=== PATIENT | female | born 1960 | race Caucasian/White ===

== ENCOUNTER → 2016-06-27 | Outpatient (REF) | payer OTHER ==
[~2016-06-27] MED LIST: /ESOM40CA PO; CIPR500T19 OR; DETR4CAP PO; FERR325T OR; FLAG500T OR; HYDR12.55 PO; IRONTAB3 PO; LISI40TAB PO; MOTRIN PO; No Historical Meds; OMEP20TA7 OR; VICO5TAB16 PO
[2016-06-27 18:10] LABS: ALBUMIN 4.3 GM/DL (3.2-5.2); ALBUMIN/GLOBULIN RATIO 1.08 (1.00-1.93); ALKALINE PHOSPHATASE 112 U/L (45-117); ALT/SGPT 65 U/L (12-78); ANION GAP 8 MEQ/L (8-16); AST/SGOT 30 U/L (15-37); BILIRUBIN,TOTAL 0.3 MG/DL (0.2-1.0); BLOOD UREA NITROGEN 13 MG/DL (7-18); CALCIUM LEVEL 9.1 MG/DL (8.5-10.1); CARBON DIOXIDE LEVEL 32 MEQ/L (21-32); CHLORIDE LEVEL 104 MEQ/L (98-107); CREATININE FOR GFR 0.74 MG/DL (0.55-1.02); GLOMERULAR FILTRATION RATE > 60.0 (>51); GLUCOSE, FASTING 86 MG/DL (70-105); POTASSIUM SERUM 4.2 MEQ/L (3.5-5.1); SODIUM LEVEL 144 MEQ/L (136-145); TOTAL PROTEIN 8.3 GM/DL (6.4-8.2)
[2016-06-27 19:14] LABS: BASO # 0.1 K/mm3 (0.0-0.2); BASO % 0.8 % (0.0-1.0); EOS # 0.4 K/mm3 (0.0-0.50); LARGE UNSTAINED CELL # 0.2 K/mm3 (0.0-0.4); LARGE UNSTAINED CELL % 2.3 % (0.0-4.0); LYMPH # 1.8 K/mm3 (1.5-4.5); LYMPH % 25.5 % (24.0-44.0); MEAN CORPUSCULAR HEMOGLOBIN 28.3 pg (27.0-33.0); MEAN CORPUSCULAR HGB CONC 32.5 g/dl (32.0-36.5); MONO # 0.5 K/mm3 (0.0-0.8); MONO % 6.3 % (0.0-5.0); NEUTROPHILS # 4.2 K/mm3 (1.8-7.7); NEUTROPHILS % 59.1 % (36.0-66.0); PLATELET COUNT, AUTOMATED 217 k/mm3 (150-450); RED CELL DISTRIBUTION WIDTH 13.1 % (11.5-14.5); WHITE BLOOD COUNT 7.1 K/mm3 (4.0-10.0)
== END ==
LOC: M SFHCCLAY 10:46
PROVIDERS: ATTEND Family Medicine
DX: D64.9 Anemia, unspecified (principal); I10 Essential (primary) hypertension

== ENCOUNTER → 2016-07-08 | Outpatient (CLI) | payer OTHER ==
--- NOTE | 2016-07-08 08:29 | REP ---
The penetration on the ultrasound on this patient is not completely optimal. In the posterior wall of the gallbladder is suggestion of a 2.9 mm nodular polyp. This finding is not conclusive. The common bile duct measurement is 4.4 mm. Gallbladder wall thickness 1.3 mm. The echogenicity of the liver is increased with some focal fatty sparing. The pancreas is difficult to visualize. The kidney measures 10.7 x 5.1 x 5.1 cm and has normal echotexture. IMPRESSION: There is fatty replacement of the liver. Normal common bile duct. Possible polyp of the posterior wall of the gallbladder but this finding is not conclusive. The study has not changed significantly from that on 12/24/2008. Unreviewed
== END ==
LOC: M RAD 07:07
PROVIDERS: ATTEND Family Medicine
DX: K76.0 Fatty (change of) liver, not elsewhere classified (principal); M54.9 Dorsalgia, unspecified

== ENCOUNTER → 2016-10-24 | Outpatient (REF) | LOC: M SFHCADAM 18:02 | PROVIDERS: ATTEND Physician Assistant | DX: Z00.00 Encounter for general adult medical examination without abnormal findings (principal) ==

== ENCOUNTER 2017-04-09 22:25 | Inpatient (IN) | payer OTHER ==
[~2017-04-09] VITALS: Ht 160 cm; Wt 85.8 kg
[2017-04-09] MEDS ORDERED: ISOVUE-370 76% 100ML VIAL (Q9967) As Ordered ONE (22:43)
--- NOTE | 2017-04-09 23:00 | REPUSA ---
CT of the head Clinical history: Headache. Comparison: september. Protocol: Multiple axial CT images obtained with 5 mm slice thickness were obtained through the head without administration of contrast. Findings: The ventricles and sulci are symmetric but prominent in size bilaterally. There are periven tricular areas of low attenuation throughout the deep white matter. There is no evidence of acute hem orrhage or infarct. There is no midline shift, mass effect, or extra-axial fluid collection. The osse ous structures are unremarkable. The visualized paranasal sinuses and mastoid air cells are clear. Impression: No acute hemorrhage or infarct. Findings are consistent with stable age-related atrophy a nd mild chronic small vessel ischemic disease.
[2017-04-09] MEDS ORDERED: OMEP40CA2 PO (23:06)
[2017-04-09] MEDS ORDERED: HYDR25TAB PO (23:06)
[2017-04-09] MEDS ORDERED: LISI40TAB PO (23:06)
[2017-04-09 23:37] LABS: BASO % 0.6 % (0.0-1.0); EOS # 0.5 10^3/uL (0.0-0.50); EOS % 7.2 % (0.0-3.0); IMMATURE GRANULOCYTE % 0.4 % (0-0); LYMPH # 2.4 10^3/uL (1.5-4.5); LYMPH % 34.2 % (24.0-44.0); MEAN CORPUSCULAR HEMOGLOBIN 29.2 pg (27.0-33.0); MEAN CORPUSCULAR HGB CONC 33.3 g/dl (32.0-36.5); MEAN CORPUSCULAR VOLUME 87.6 fl (80.0-96.0); MONO # 0.5 10^3/uL (0.0-0.8); MONO % 7.4 % (0.0-5.0); NEUTROPHILS # 3.5 10^3/uL (1.8-7.7); NEUTROPHILS % 50.2 % (36.0-66.0); PLATELET COUNT, AUTOMATED 231 10^3/uL (150-450); RED CELL DISTRIBUTION WIDTH 12.6 % (11.5-14.5)
[2017-04-09 23:47] LABS: INR 0.94
[2017-04-10 00:03] LABS: ANION GAP 9 MEQ/L (8-16); BLOOD UREA NITROGEN 17 MG/DL (7-18); CALCIUM LEVEL 9.2 MG/DL (8.5-10.1); CARBON DIOXIDE LEVEL 31 MEQ/L (21-32); CHLORIDE LEVEL 102 MEQ/L (98-107); CREATININE FOR GFR 1.02 MG/DL (0.55-1.02); GLOMERULAR FILTRATION RATE 59.9 (>51); GLUCOSE, FASTING 134 MG/DL (70-105); POTASSIUM SERUM 3.6 MEQ/L (3.5-5.1); SODIUM LEVEL 142 MEQ/L (136-145)
--- NOTE | 2017-04-10 02:40 | REPUSA ---
CLINICAL HISTORY: Dyspnea, exclude PE. TECHNIQUE: Multiple incremental axial, coronal and oblique images are obtained from the thoracic inle t to the upper abdomen. Intravenous contrast material was administered as per pulmonary embolism prot ocol. COMMENTS: Subsegmental atelectatic airspace disease in the lingula and bilateral lower lobes. There is excellent opacification of pulmonary arterial system without evidence for pulmonary embolism . Aorta is of normal caliber without evidence for dissection or aneurysm. There is no evidence of pleural or parenchymal mass. There are no pleural effusions. There is no evid ence of hilar or mediastinal lymphadenopathy. The heart and great vessels are within normal limits. Images of the upper abdomen demonstrate no evidence of adrenal mass. The bony structures are free of lytic or blastic lesions. IMPRESSION: No evidence for pulmonary embolism. Subsegmental atelectatic airspace disease in the lingula and bilateral lower lobes. Thank you for your kind referral of this patient.
[2017-04-10] MEDS ORDERED: ASPIRIN 81 MG CHEW TABLET PO ONE (05:15)
--- NOTE | 2017-04-10 05:48 | HPE ---
DATE OF ADMISSION: 04/10/2017 This patient is a 56-year-old female. CHIEF COMPLAINT: The patient comes in with the chief complaint of aphasia and weakness. HISTORY OF PRESENT ILLNESS (HPI): The patient is a 56-year-old female who comes in with complaints of difficulty speaking, aphasia and crushing chest pain in her middle chest area leading down to her epigastrium. The patient notes that this began while she was watching television yesterday evening. The patient said that it happened all at once and at the same time she suddenly lost the ability to talk, she could not communicate. The patient did however state she understood everything that was going on, was having difficulty speaking; therefore they brought her in for the chest pain and the aphasia. While the patient was in the emergency department (ED) she says the chest pain has significantly decreased but there is a mild presence that is still there. The patient's difficulty speaking has completely resolved. REVIEW OF SYSTEMS: The patient 10-system review shows no other acute complaints other than some weakness that has also now resolved. ALLERGIES: The patient has allergies to ALBUTEROL and IPRATROPIUM. PAST MEDICAL HISTORY: 1. Hypertension. 2. Chronic gastritis. 3. Nonalcoholic fatty liver disease. 4. Iron deficiency anemia. 5. 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 PAST SURGICAL HISTORY: 1. Anton fundoplication 2002. 2. section times two. 3. Tonsillectomy and adenoidectomy. 4. Breast reduction 2008. FAMILY HISTORY: The patient has a family history of cerebrovascular accident (CVA) and myocardial infarction (IL) in the father and mother with melanoma and hypertension. SOCIAL HISTORY: The patient is a nonsmoker, nondrinker, nondrug abuser. Initial EKG was actually sinus rhythm. The followup EKG was sinus bradycardia. PHYSICAL EXAMINATION: VITAL SIGNS: Most recently pulse 77, temperature 96.1, blood pressure 113/63, pulse oxygen 97. STROKE SCALE: 0 when I did the stroke scale during my physical exam. CENTRAL NERVOUS SYSTEM: II-XII grossly intact. The patient with grossly normal hearing. The patient is able to see out of both eyes. HEENT: ENT within normal limits. Extraocular muscles intact (EOMI), pupils equal, round, and reactive to light and accommodation (PERRLA). No meningeal signs. HEART: S1, S2. CHEST: Good inspiratory and expiratory effort, no wheezes, rhonchi or rales. MUSCULOSKELETAL: The patient has 5/5 strength in all four extremities. NEUROLOGIC: The patient is awake, alert and oriented times three. Normal affect, normal mood. SKIN: The skin is warm and dry. No apparent lymphadenopathy. LABORATORY EXAM: WBC 7.0, hemoglobin, hematocrit and platelets within normal limits. Coagulation within normal limits. Chemistry: Sodium 142, potassium 3.6, chloride 102, carbon dioxide 31, anion gap 9, BUN 17, creatinine 1.02. Fasting glucose 134, troponin is negative times two. IMAGING: CT angiogram of the chest with no evidence of pulmonary embolism, segmental atelectatic air space disease in the lingula and bilateral lower lobes. Head CT impression: No acute hemorrhage or infarct. The findings are consistent with stable aged related atrophy, mild chronic small vessel ischemic disease. ASSESSMENT AND PLAN: The patient is a 56-year-old female who comes in with chest pain and aphasia. The chest pain mostly resolved, still mildly present. As per the patient aphasia completely resolved as is weakness. The patient was initially evaluated via tele-med by neurology. No particular recommendations noted. The patient's MRI status post MRI, will call neurology and discuss plan, place consult. Will hold hydrochlorothiazide and lisinopril. The patient should be on permissive hypertension at this time. The patient is to be admitted for transient ischemic attack (TIA) work-up, neurology consult, continued observation.
--- NOTE | 2017-04-10 06:00 | REPUSA ---
CLINICAL HISTORY: Confusion. TECHNIQUE: MRI of the brain was performed utilizing multiple sequences in axial, coronal and sagittal planes without IV contrast material. COMMENTS: The sella and parasellar region are unremarkable in appearance. The corpus callosum and cerebellar to nsils are of normal configuration and position. There are no intra or extra-axial collections. There is no mass effect or midline shift. There is no evidence of hematoma formation. There is no hydroceph alus. The visualized arterial structures demonstrate normal appearing flow voids. The seventh and eighth ne rve bundles are visualized and are unremarkable in appearance. Several foci of T2/FLAIR hyperintensity are noted in the bilateral periventricular and subcortical wh ite matter compatible with mild chronic white matter ischemic changes. Generalized proportionate dilatation of ventricles and sulci is present compatible with age-appropria te parenchymal atrophy. Moderate chronic mucosal inflammatory changes in the left maxillary sinus. IMPRESSION: 1. No acute intracranial pathology. 2. Generalized age-appropriate parenchymal atrophy. 3. Mild chronic white matter microvascular ischemic changes. Thank you for your kind referral of this patient.
--- NOTE | 2017-04-10 06:20 | REPUSA ---
CLINICAL HISTORY: Left eye loss of vision. TECHNIQUE: Three dimensional hmif-sf-sodakw angiography is performed of the [place]. The wendi dy was performed without IV contrast agent. FINDINGS: The supraclinoid portions of the internal carotid arteries are of normal shape. The normal bifurcation is seen. The middle cerebral arteries are unremarkable in appearance. The posterior circu lation is visualized and shows no evidence of occlusion or aneurysm formation. The basilar tip is see n and shows no aneurysm formation. There is no evidence of beading to suggest vasculitis. IMPRESSION: MRA of the [place] is within normal limits. Thank you for your kind referral of this patient.
--- NOTE | 2017-04-10 08:04 | REP ---
Clinical: Altered mental status. Possible cerebrovascular accident . Comparison: 09/12/2014 . Findings: The mediastinum and cardiac silhouette are stable and within normal limits for portable technique. The lung luciano are clear without acute consolidation, effusion, or pneumothorax. Skeletal structures are intact. Impression: No acute cardiopulmonary process appreciated. Signed by Omar Brar MD 04/10/2017 07:56 A
--- NOTE | 2017-04-10 08:19 | REP ---
DUPLEX CAROTID SONOGRAPHY: HISTORY: TIA. FINDINGS: Antegrade flow was observed in both vertebral arteries. RIGHT CAROTID: The right common carotid artery is unremarkable on two-dimensional scanning. There is minimal mixed plaquing in the bulb, proximal ICA and proximal ECA on the right side. The right bifurcation is somewhat high. Color flow and spectral Doppler interrogation are unremarkable on the right. Velocity Chart Right Carotid: PSV EDV Right CCA 85 cm/s Right ICA 44 cm/s 19 cm/s Right ECA 49 cm/s Right ICA/CCA ratio normal 0.52. IMPRESSION: 0-15% category narrowing in the right ICA by Doppler velocity criteria. LEFT CAROTID: The left common carotid artery is unremarkable. The left carotid bifurcation is somewhat high a similar to the right. There is mild mixed plaquing. Color flow and spectral Doppler interrogation are unremarkable on the left. Velocity Chart Left Carotid: PSV EDV Left CCA 68 cm/s Left ICA 52 cm/s 15 cm/s Left ECA 63 cm/s Left ICA/CCA ratio normal 0.8. IMPRESSION: 0-15% category narrowing in the left ICA by Doppler velocity criteria. Signed by Bharat Nguyen MD 04/10/2017 01:01 P
[2017-04-10 09:00] VITALS: BP 125/71
--- NOTE | 2017-04-10 09:03 | IPNPDOC ---
Subjective Date Seen The patient was seen on 04/10/17. Subjective Chief Complaint/HPI The patient is a 56-year-old female admitted with a reason for visit of Tia( Transient Ischemic Attack). Constitutional: Denies: Chills, Night Sweats ENT: Denies: Head Aches, Dysphagia Skin: Denies: Rash Pulmonary: Denies: Dyspnea, Cough Cardiovascular: Denies: Palpitations, Orthopnea, Paroxysmal Noc. Dyspnea Gastrointestinal: Denies: Vomiting, Abdominal Pain, Diarrhea Genitourinary: Denies: Dysuria Hematologic: Denies: Bruising Psych: Reports: Mood Normal Objective Physical Examination Neuro Exam: Positive: Normal Speech, Cranial Nerves 3-12 NL, Reflexes 2+, Other (no demonstrable weakness.) Assessment /Plan Problems (1) TIA (transient ischemic attack) Status: Acute Response to Treatment: Improving Problem Specific Plan: Consult Specialist Problem Text: patient with history of similar previous episodes. negative MRI, CT, Carotid doppler so far. No residual deficit noted. Since she has seen Dr. Villegas in past, will consult Neuro. Continue ASA at 162mg for now (2) Chest pain Status: Acute Response to Treatment: Improving Problem Text: Unclear cause. CT angio neg. Troponins negative. She does have history of GERD and is s/p fundoplication (3) Essential hypertension Status: Chronic Response to Treatment: Stable Problem Text: Has not yet resumed bp meds, will follow. Resume prior to discharge or if pressure climbs sufficiently to require Rx while in house. (4) GERD (gastroesophageal reflux disease) Status: Chronic Response to Treatment: Stable Problem Text: Atypical CP as above. Has hx of GERD and is s/p Anton fundoplication. On PPI Plan/VTE VTE Prophylaxis Ordered?: Yes Plan Diagnostics: Check Labs Anticipated Discharge: Home VS, I&O, 24H, [facility] Vital Signs/I&O Vital Signs Date Time Temp Pulse Resp B/P (MAP) Pulse Ox O2 Delivery O2 Flow Rate FiO2 04/10/17 07:15 56 112/73 (86) 95 04/09/17 22:53 96.1 18 Room Air Laboratory Data 24H LABS Laboratory Tests 2 04/09/17 23:24: Immature Granulocyte % (Auto) 0.4H, White Blood Count 7.0, Red Blood Count 4.42 , Hemoglobin 12.9, Hematocrit 38.7, Mean Corpuscular Volume 87.6, Mean Corpuscular Hemoglobin 29.2, Mean Corpuscular Hemoglobin Concent 33.3, Red Cell Distribution Width 12.6, Platelet Count 231, Neutrophils (%) (Auto) 50.2, Lymphocytes (%) (Auto) 34.2, Monocytes (%) (Auto) 7.4H, Eosinophils (%) (Auto) 7.2H, Basophils (%) (Auto) 0.6, Neutrophils # (Auto) 3.5, Lymphocytes # (Auto) 2.4, Monocytes # (Auto) 0.5, Eosinophils # (Auto) 0.5, Basophils # (Auto) 0.0, Immature Granulocyte # (Auto) 0.0, Nucleated Red Blood Cells % (auto) 0.0, Prothrombin Time 12.7, Prothromb Time International Ratio 0.94, Activated Partial Thromboplast Time 29.2, Anion Gap 9, Glomerular Filtration Rate 59.9, Blood Urea Nitrogen 17, Creatinine 1.02, Sodium Level 142, Potassium Level 3.6, Chloride Level 102, Carbon Dioxide Level 31, Calcium Level 9.2, Total Creatine Kinase 107, Creatine Kinase MB 3.4, Creatine Kinase MB Relative Index 3.17, Troponin I < 0.02 04/10/17 03:00: Total Creatine Kinase 81, Creatine Kinase MB 2.4, Creatine Kinase MB Relative Index 2.96, Troponin I < 0.02 04/10/17 07:00: Troponin I < 0.02 CBC/BMP Laboratory Tests 04/09/17 23:24 Red Blood Count 4.42, Mean Corpuscular Volume 87.6, Mean Corpuscular Hemoglobin 29.2, Mean Corpuscular Hemoglobin Concent 33.3, Red Cell Distribution Width 12.6 , Neutrophils (%) (Auto) 50.2, Lymphocytes (%) (Auto) 34.2, Monocytes (%) (Auto ) 7.4 H, Eosinophils (%) (Auto) 7.2 H, Basophils (%) (Auto) 0.6, Neutrophils # ( Auto) 3.5, Lymphocytes # (Auto) 2.4, Monocytes # (Auto) 0.5, Eosinophils # (Auto ) 0.5, Basophils # (Auto) 0.0, Calcium Level 9.2, Total Creatine Kinase 107 Romulo Kirkpatrick MD Apr 10, 2017 09:03
--- NOTE | 2017-04-10 09:17 | ECGEPIP ---
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
--- NOTE | 2017-04-10 09:19 | ECGEPIP ---
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
[2017-04-10] MEDS: ATORVASTATIN 20 MG TAB PO SCH ×2 (09:41→20:33)
[2017-04-10] MEDS: OMEPRAZOLE 20 MG CAP PO SCH (09:43)
[2017-04-10 10:00] VITALS: BP 123/58
[2017-04-10 12:04] VITALS: BP 113/66
[2017-04-10 14:00] VITALS: BP 97/55
[2017-04-10 16:00] VITALS: BP 148/69
[2017-04-10 20:00] VITALS: BP 106/61
[2017-04-11] VITALS: BP 126/67
[2017-04-11 03:45] VITALS: BP 118/67
[2017-04-11 08:00] VITALS: BP 126/73
--- NOTE | 2017-04-11 08:03 | CR ---
DATE OF CONSULTATION: 04/10/2017 REFERRING PHYSICIAN: Dr. Romulo Kirkpatrick. REASON FOR CONSULTATION: Trouble with speech and chest pain. HISTORY OF PRESENT ILLNESS: Julissa Augustine is a 56-year-old woman who had multiple episodes of speech difficulty in [id number]. She would have one or two episodes per months. She was not able to say the words she has in her mind and she would have stuttering speech with jaw locked up. They would last 10-15 minutes and resolving by relaxing and calming down. Work and stress would increase them. She would also have very high blood pressure in some of these episodes. It was thought that by controlling her blood pressure the episodes would improve and they actually did improve. She had no episodes for 2 years. Yesterday it was a usual day for her. She had left leg pain. Around 9:00 p.m., while watching TV, she developed severe chest pain and severe 8/10 headache, both of which lasted for 1-2 hours. She also felt neck pain. Headache was frontal in location. She felt stuttering speech trouble, as she could not say words. She had to force her words out. She had everything in her mind but could not say it. This lasted for 6 hours. She had MRI and MRA of brain, which were unremarkable. Carotid ultrasound showed less than 15% bilateral carotid artery stenosis. She also had EEG on an outpatient basis in 2014, which was unremarkable. The patient states that she have severe side effects due to aspirin and NSAIDs, which caused peptic ulcer disease and whenever she takes aspirin it aggravates her ulcers. She denies any neck pain, dysphagia, diplopia, urinary incontinence, falls or loss of consciousness. PAST MEDICAL HISTORY: Hypertension. Fatty liver disease. Chronic gastritis. Iron-deficiency anemia. Myoclonic jerks in sleep. PAST SURGICAL HISTORY: sections. Tonsillectomy. Adenoidectomy. Breast reduction. Dago fundoplication. SOCIAL HISTORY: The patient denies smoking, alcohol or illicit drugs. FAMILY HISTORY: His father had stroke and heart attack. Mother had melanoma and hypertension. REVIEW OF SYSTEMS: All systems were reviewed and found to be noncontributory except as mentioned in history present illness. PHYSICAL EXAMINATION: Temperature 98.5 pulse 58, respiratory rate 18, blood pressure 148/69. Heart regular rate and rhythm. Lungs: Clear to auscultation. Abdomen: Soft, nontender, nondistended. Neurological Exam: The patient is awake, alert, oriented to place, person and time. Normal speech comprehension and repetition. Extraocular muscles are intact. No facial weakness. Tongue and uvula are midline. 5/5 strength in all four extremities. Deep tendon flexes 2+ throughout. Normal sensation. Gait is normal. There is no dysmetria or ataxia. There is no tremor. There is no rigidity. There are no signs of meningeal irritation. No pedal edema. No rash. No gross musculoskeletal abnormalities. Ear, nose and throat examination reveals crowded upper airway present. DIAGNOSTIC STUDIES: As per history present illness, the patient had extensive blood tests in 2015 to rule out vasculitis and coagulation disorders. ASSESSMENT 1. There is concern for transient ischemic attack. 2. Hypertensive urgency can produce similar symptoms although the patient did not have high blood pressure with her symptoms this time. 3. Less than 15% bilateral carotid artery stenosis. PLAN: 1. Aspirin 162 mg by mouth daily, Lipitor 20 mg by mouth daily and continue Prilosec 40 mg by mouth daily. 2. Consider transesophageal echocardiogram. 3. Continue telemetry monitoring. 4. Follow with Dr. Villegas at our office in 1 month after hospital discharge. ONEYDA
[2017-04-11 08:38] LABS: ALBUMIN 3.6 GM/DL (3.2-5.2); ALBUMIN/GLOBULIN RATIO 0.95 (1.00-1.93); ALKALINE PHOSPHATASE 75 U/L (45-117); ALT/SGPT 32 U/L (12-78); ANION GAP 9 MEQ/L (8-16); AST/SGOT 18 U/L (7-37); BILIRUBIN,TOTAL 0.3 MG/DL (0.2-1.0); BLOOD UREA NITROGEN 22 MG/DL (7-18); CALCIUM LEVEL 9.1 MG/DL (8.5-10.1); CARBON DIOXIDE LEVEL 27 MEQ/L (21-32); CHLORIDE LEVEL 105 MEQ/L (98-107); CREATININE FOR GFR 0.74 MG/DL (0.55-1.02); GLOMERULAR FILTRATION RATE > 60.0 (>51); GLUCOSE, FASTING 98 MG/DL (70-105); SODIUM LEVEL 141 MEQ/L (136-145); TOTAL PROTEIN 7.4 GM/DL (6.4-8.2)
[2017-04-11] MEDS ORDERED: ASPIRIN 81 MG CHEW TABLET PO SCH (09:00)
[2017-04-11] MEDS: OMEPRAZOLE 20 MG CAP PO SCH (09:41)
[2017-04-11 12:00] VITALS: BP 138/73
--- NOTE | 2017-04-11 12:00 | IPNPDOC ---
Subjective Date Seen The patient was seen on 04/11/17. Subjective Chief Complaint/HPI The patient is a 56-year-old female admitted with a reason for visit of Tia( Transient Ischemic Attack). Events since last encounter No further headache. no further aphasia. Feels well. Constitutional: Denies: Chills, Fever Pulmonary: Denies: Dyspnea, Cough Cardiovascular: Denies: Chest Pain, Palpitations Gastrointestinal: Denies: Nausea, Vomiting, Abdominal Pain, Diarrhea, Constipation Objective Physical Examination General Exam: Positive: Alert, No Acute Distress Chest Exam: Positive: Clear to auscultation, Normal air movement Heart Exam: Positive: Rate Normal, Negative: Murmurs Abdomen Exam: Positive: Normal bowel sounds, Soft, Negative: Tenderness Extremity Exam: Negative: Edema Neuro Exam: Positive: Normal Speech, Strength at 5/5 X4 ext, Cranial Nerves 3- 12 NL, Reflexes 2+, Other (finger to nose intact BL) Assessment /Plan Problems (1) TIA (transient ischemic attack) Status: Acute Response to Treatment: Improving Problem Specific Plan: Consult Specialist Problem Text: 04/11 - Neurology following. cont ASA 162 mg daily. cont. Lipitor. SENDY pending (has h/o migraines in past and had headache at time of onset of symptoms - ? atypicla migraines) patient with history of similar previous episodes. negative MRI, CT, Carotid doppler so far. No residual deficit noted. Since she has seen Dr. Villegas in past, will consult Neuro. Continue ASA at 162mg for now (2) Chest pain Status: Acute Response to Treatment: Improving Problem Text: Unclear cause. CT angio neg. Troponins negative. She does have history of GERD and is s/p fundoplication (3) Essential hypertension Status: Chronic Response to Treatment: Stable Problem Text: Bp meds held due to low BP - BP remains on low side (4) GERD (gastroesophageal reflux disease) Status: Chronic Response to Treatment: Stable Problem Text: Atypical CP as above. Has hx of GERD and is s/p Anton fundoplication. On PPI Plan/VTE VTE Prophylaxis Ordered?: Yes Plan Diagnostics: Check Labs Anticipated Discharge: Home VS, I&O, 24H, [facility] Vital Signs/I&O Vital Signs Date Time Temp Pulse Resp B/P (MAP) Pulse Ox O2 Delivery O2 Flow Rate FiO2 04/11/17 08:00 97.4 71 18 126/73 (90) 97 Room Air I&O- Last 24 Hours up to 6 AM 04/12/17 06:00 Intake Total 120 ml Output Total 0 ml Balance 120 ml Laboratory Data 24H LABS Laboratory Tests 2 04/10/17 13:05: Troponin I < 0.02 04/10/17 20:59: Troponin I < 0.02 04/11/17 07:18: Anion Gap 9, Glomerular Filtration Rate > 60.0, Blood Urea Nitrogen 22H, Creatinine 0.74, Sodium Level 141, Potassium Level 4.0, Chloride Level 105, Carbon Dioxide Level 27, Calcium Level 9.1, Aspartate Amino Transf (AST/SGOT) 18 , Alanine Aminotransferase (ALT/SGPT) 32, Alkaline Phosphatase 75, Total Bilirubin 0.3, Total Protein 7.4, Albumin 3.6, Albumin/Globulin Ratio 0.95L CBC/BMP Laboratory Tests 04/11/17 07:18 Calcium Level 9.1, Aspartate Amino Transf (AST/SGOT) 18, Alanine Aminotransferase (ALT/SGPT) 32, Alkaline Phosphatase 75, Total Bilirubin 0.3, Total Protein 7.4, Albumin 3.6 SAL TINSLEY PA-C Apr 11, 2017 12:00
[2017-04-11] MEDS ORDERED: MIDAZOLAM INJ 2 MG/2 ML VIAL (J2250) As Ordered ONE (15:44)
[2017-04-11] MEDS ORDERED: LIDOCAINE VISCOUS 2% SOLN 15ML UDC As Ordered ONE (15:45)
[2017-04-11] MEDS: MIDAZOLAM INJ 2 MG/2 ML VIAL (J2250) IV ONE ×2 (15:59→16:32)
[2017-04-11] MEDS ORDERED: LIDOCAINE VISCOUS 2% SOLN 15ML UDC SS ONE (16:27)
[2017-04-11] MEDS ORDERED: MIDAZOLAM INJ 2 MG/2 ML VIAL (J2250) IV ONE ×2 (16:29→16:33)
--- NOTE | 2017-04-11 16:42 | T-ECHO ---
DATE OF PROCEDURE: 04/11/2017 PREPROCEDURE DIAGNOSIS: Transient cerebral ischemia, unspecified. POSTPROCEDURE DIAGNOSIS: Transient cerebral ischemia, unspecified. FINDINGS: Small patent foramen ovale with a very small amount of saline contrast shunting from right atrium to left atrium via patent foramen ovale (PFO). PROCEDURE PERFORMED: Transesophageal echocardiogram with saline contrast. PROCEDURE PERFORMED BY: Real Sorensen MD ACTIVITY THERAPIST: None. COMPLICATIONS: None. DESCRIPTION OF PROCEDURE: Rhythm was sinus. Patient received viscous lidocaine to gargle. She received a total of 4 mg of midazolam IV for IV conscious sedation. The patient tolerated the procedure well without any immediate complications. Esophageal intubation was accomplished without difficulty using a Marcin multiplane two-dimensional phased array transesophageal echocardiogram probe. The intraatrial septum was intact by color flow Doppler but was somewhat suspicious for presence of a PFO by visual assessment. Multiple saline contrast injections were performed with Valsalva maneuver release, and a very small amount of saline contrast bubbles were seen shunting from right atrium to left atrium via the PFO during Valsalva maneuver release, consistent with a very small patent foramen ovale. No masses, thrombi or spontaneous echo contrast were seen within the atria or their appendages. Pulmonary vein inflow connections to the left atrium were normal. Pulse wave Doppler of the left upper pulmonary vein showed normal flow pattern. Aortic valve was 3-cuspid and was structurally and functionally normal. Mitral leaflets were structurally and functionally normal with very mild mitral regurgitation within normal limits. Tricuspid valve was structurally normal with mild tricuspid regurgitation within normal limits. Pulmonic valve was not well visualized. No pericardial effusion. The ventricles were normal in size and in systolic function. No regional wall motion abnormalities of ventricles. Left ventricle ejection fraction was 65% by visual estimate. Distal aortic arch and descending thoracic aorta were normal. CONCLUSIONS: 1. Presence of a small patent foramen ovale with a very small amount of saline contrast shunting from right atrium to left atrium via the PFO during Valsalva maneuver release. 2. Otherwise normal appearing transesophageal echocardiogram (SENDY).
[2017-04-11 17:00] VITALS: BP 148/75
[2017-04-11 20:00] VITALS: BP 125/64
[2017-04-11] MEDS: ATORVASTATIN 20 MG TAB PO SCH (20:30)
[2017-04-11] MEDS ORDERED: SLF 3 ML SYR IV PRN (23:30)
[2017-04-12] VITALS: BP 122/62
[2017-04-12 04:00] VITALS: BP 102/60
[2017-04-12] MEDS ORDERED: SLF 3 ML SYR IV SCH (06:00)
[2017-04-12 06:11] LABS: ALBUMIN 3.3 GM/DL (3.2-5.2); ALBUMIN/GLOBULIN RATIO 0.92 (1.00-1.93); ALKALINE PHOSPHATASE 68 U/L (45-117); ALT/SGPT 31 U/L (12-78); ANION GAP 5 MEQ/L (8-16); AST/SGOT 12 U/L (7-37); BILIRUBIN,TOTAL 0.3 MG/DL (0.2-1.0); BLOOD UREA NITROGEN 17 MG/DL (7-18); CALCIUM LEVEL 8.8 MG/DL (8.5-10.1); CARBON DIOXIDE LEVEL 29 MEQ/L (21-32); CHLORIDE LEVEL 108 MEQ/L (98-107); CREATININE FOR GFR 0.65 MG/DL (0.55-1.02); GLOMERULAR FILTRATION RATE > 60.0 (>51); GLUCOSE, FASTING 98 MG/DL (70-105); POTASSIUM SERUM 3.8 MEQ/L (3.5-5.1); SODIUM LEVEL 142 MEQ/L (136-145); TOTAL PROTEIN 6.9 GM/DL (6.4-8.2)
[2017-04-12 07:45] VITALS: BP 120/63
[2017-04-12] MEDS: OMEPRAZOLE 20 MG CAP PO SCH (08:15)
[2017-04-12] MEDS ORDERED: CLOPIDOGREL 75 MG TAB PO SCH (09:00)
[2017-04-12] MEDS ORDERED: ASPIRIN 81 MG ENTERIC TAB PO SCH (09:00)
[2017-04-12] MEDS ORDERED: ATOR1TAB21 PO (09:32)
[2017-04-12] MEDS ORDERED: CLOP75TA2 PO (09:32)
[2017-04-12] MEDS ORDERED: ASPI81TAEC PO (09:32)
--- NOTE | 2017-04-12 11:01 | DS.PDOC ---
Discharge Summary General Date of Admission Apr 10, 2017 at 05:13 Date of Discharge 04/12/17 Discharge Summary Consults: Neurology Discharge diagnosis: Transient Ischemic Attack Secondary diagnosis: Chest Pain, Essential hypertension, GERD Hospital course: Patient presented to the ED on 04/09/17 with symptoms of being unable to speak, headache, and chest pain. Upon her arrival to the ED, these symptoms had almost resolved. Patient was admitted for observation for suspected TIA. During hospitalization, patient was seen by Dr. Virk of neurology who recommended patient have a SENDY. Neurology also recommended that the patient be on 162 mg of aspirin daily. Results of the SENDY showed a small patent foramen ovale and it was recommended that the patient begin a course of aspirin 81 daily and clopidogrel 75 mg daily for a week after discharge and then stop the aspirin and continue the clopidogrel. Patient also had carotid ultrasound that showed less than 15% stenosis bilaterally. Patients symptoms have resolved completely at time of discharge. Progress note on date of discharge: Subjective: Patient is doing well today with no acute complaints. Her symptoms that were present at time of admission have resolved completely. Objective: Vitals: Blood pressure: 120/63, pulse: 62, respirations: 18, temp: 97.4, pulse ox: 93% on RA. Gen.: Patient awake, alert and oriented, verbal and able to answer questions appropriately. Patient does not appear to be in any acute distress Heart: Regular rate and rhythm, normal S1-S2. No murmurs, rubs, clicks or gallops Lungs: Clear to auscultation bilaterally. No wheezes, rales or rhonchi Abdomen: Active bowel sounds, soft, nontender, no masses to palpation Labs: CBC: WBC: 7.0, HB.9, HCT: 38.7, Platelets: 231 BMP: Na: 142, K: 3.8: Cl: 108, Bicarb: 29, BUN: 17, Creatinine: 0.65, Glucose: 98, Calcium: 8.8 Assessment: Patient is 56 year old female who presented with aphasia, headache, and chest pain which was transient in nature. This is consistent with a transient ischemic attack. Patients symptoms have resolved and she is safe for discharge. Disposition: Discharge to home Follow-up: With Josh Dias on 04/19/17 at 11:00am, will need to call neurology to arrange for follow up in [address] Villegas. Activity: As tolerated Diet: 2 gram sodium restriction Medications on discharge: Aspirin 81 mg PO daily for 1 week then discontinue Clopidogrel 75 mg PO daily Atorvastatin 20 mg PO daily Omeprazole 40 mg PO daily Cc: Dr. Villegas, Narda Rosa Time spent on discharge: 30 minutes Discharge Medications Scheduled Aspirin (Aspirin EC) 81 Mg Tabec, 81 MG PO DAILY Atorvastatin Calcium (Atorvastatin Calcium) 20 Mg Tab, 20 MG PO QHS Clopidogrel Bisulfate (Clopidogrel) 75 Mg Tab, 75 MG PO DAILY Omeprazole (Omeprazole) 40 Mg Cap, 40 MG PO DAILY, (Reported) Allergies Coded Allergies: Albuterol (Verified Allergy, Severe, DIFFICULTY BREATHING,HANDS/FEET TURNED BLACK, 04/09/17) Ipratropium (Verified Allergy, Severe, DIFFICULTY BREATHING,HANDS/FEET TURNED BLACK, 04/09/17) GME ATTESTATION GME ATTESTATION My faculty preceptor for this patient encounter was physically present during the encounter and was fully available. All aspects of the patient interview, examination, medical decision making process, and medical care plan development were reviewed and approved by the faculty preceptor. The faculty preceptor is aware and concurs with the plan as stated in the body of this note and will attest to such by his/her cosignature. LASHON CARVALHO DO Apr 12, 2017 11:01
== END 2017-04-12 11:19 | disposition home or self-care (01) | DRG 69 ==
LOC: M ED 22:25 → EDSEX 22:25 → EDBD 22:25 → M ED INP 04-10 05:13 → M PCU 04-11 15:31
PROVIDERS: ADMIT Internal Medicine; ATTEND Family Medicine
DX: G45.9 Transient cerebral ischemic attack, unspecified (principal); Q21.1 Atrial septal defect; K21.9 Gastro-esophageal reflux disease without esophagitis; I10 Essential (primary) hypertension; Z79.899 Other long term (current) drug therapy; D50.9 Iron deficiency anemia, unspecified; K29.50 Unspecified chronic gastritis without bleeding; K76.0 Fatty (change of) liver, not elsewhere classified; R25.1 Tremor, unspecified

== ENCOUNTER → 2017-06-21 | Outpatient (REF) | payer OTHER ==
[2017-06-21 12:15] LABS: HEMATOCRIT 41.1 % (36.0-47.0); HEMOGLOBIN 13.7 g/dl (12.0-16.0); MEAN CORPUSCULAR HEMOGLOBIN 28.6 pg (27.0-33.0); MEAN CORPUSCULAR HGB CONC 33.3 g/dl (32.0-36.5); MEAN CORPUSCULAR VOLUME 85.8 fl (80.0-96.0); PLATELET COUNT, AUTOMATED 198 10^3/uL (150-450); RED BLOOD COUNT 4.79 10^6/uL (4.00-5.40); RED CELL DISTRIBUTION WIDTH 12.5 % (11.5-14.5); WHITE BLOOD COUNT 7.6 10^3/uL (4.0-10.0)
[2017-06-21 12:30] LABS: ALBUMIN 4.6 GM/DL (3.2-5.2); ALBUMIN/GLOBULIN RATIO 1.21 (1.00-1.93); ALKALINE PHOSPHATASE 98 U/L (45-117); ALT/SGPT 32 U/L (12-78); ANION GAP 6 MEQ/L (8-16); AST/SGOT 18 U/L (7-37); BILIRUBIN,TOTAL 0.4 MG/DL (0.2-1.0); BLOOD UREA NITROGEN 15 MG/DL (7-18); CALCIUM LEVEL 9.3 MG/DL (8.5-10.1); CARBON DIOXIDE LEVEL 32 MEQ/L (21-32); CHLORIDE LEVEL 103 MEQ/L (98-107); CHOLESTEROL LEVEL 134 MG/DL (<200); CHOLESTEROL RISK RATIO 2.271 (<5); CREATININE FOR GFR 0.78 MG/DL (0.55-1.30); GLOMERULAR FILTRATION RATE > 60.0 (>51); GLUCOSE, FASTING 102 MG/DL (70-100); HDL CHOLESTEROL 59 MG/DL (>40); LDL CHOLESTEROL 56.8 MG/DL (<100); NON-HDL-C 75 MG/DL; POTASSIUM SERUM 4.2 MEQ/L (3.5-5.1); SODIUM LEVEL 141 MEQ/L (136-145); TOTAL PROTEIN 8.4 GM/DL (6.4-8.2); TRIGLYCERIDES LEVEL 91 MG/DL (<150)
== END ==
LOC: M SFHCCLAY 08:17
DX: I10 Essential (primary) hypertension (principal); G45.9 Transient cerebral ischemic attack, unspecified; K21.9 Gastro-esophageal reflux disease without esophagitis

== ENCOUNTER → 2017-09-11 | Outpatient (REF) | payer OTHER ==
[2017-09-11 19:50] LABS: FREE T4 1.09 NG/DL (0.76-1.46)
== END ==
LOC: M LABNEURO 18:53
DX: G45.9 Transient cerebral ischemic attack, unspecified (principal)
CPT/HCPCS: 84443

== ENCOUNTER → 2017-11-27 | Outpatient (CLI) | payer OTHER ==
[2017-11-27 13:11] LABS: BASO # 0.1 10^3/uL (0.0-0.2); BASO % 0.7 % (0.0-1.0); EOS # 0.4 10^3/uL (0.0-0.50); EOS % 5.7 % (0.0-3.0); HEMOGLOBIN 12.6 g/dl (12.0-15.5); IMMATURE GRANULOCYTE % 0.3 % (0-3.0); LYMPH # 2.4 10^3/uL (1.5-4.5); LYMPH % 33.7 % (24.0-44.0); MEAN CORPUSCULAR HGB CONC 33.2 g/dl (32.0-36.5); MEAN CORPUSCULAR VOLUME 87.6 fl (80.0-96.0); MONO # 0.6 10^3/uL (0.0-0.8); MONO % 7.8 % (0.0-5.0); NEUTROPHILS # 3.7 10^3/uL (1.8-7.7); NEUTROPHILS % 51.8 % (36.0-66.0); PLATELET COUNT, AUTOMATED 196 10^3/uL (150-450); RED BLOOD COUNT 4.34 10^6/uL (4.00-5.40); RED CELL DISTRIBUTION WIDTH 12.6 % (11.5-14.5); WHITE BLOOD COUNT 7.1 10^3/uL (4.0-10.0)
[2017-11-27 13:33] LABS: ANION GAP 10 MEQ/L (8-16); BLOOD UREA NITROGEN 17 MG/DL (7-18); CALCIUM LEVEL 9.6 MG/DL (8.5-10.1); CARBON DIOXIDE LEVEL 30 MEQ/L (21-32); CHLORIDE LEVEL 103 MEQ/L (98-107); CREATININE FOR GFR 0.69 MG/DL (0.55-1.30); GLOMERULAR FILTRATION RATE > 60.0 (>51); GLUCOSE, FASTING 83 MG/DL (70-100); POTASSIUM SERUM 4.2 MEQ/L (3.5-5.1); SODIUM LEVEL 143 MEQ/L (136-145)
== END ==
LOC: M WUC 12:09
DX: Q21.2 Atrioventricular septal defect (principal)
CPT/HCPCS: 80048

== ENCOUNTER 2018-01-09 17:28 | Emergency (ER) | payer OTHER ==
[2018-01-09 18:00] LABS: BASO # 0.1 10^3/uL (0.0-0.2); BASO % 0.7 % (0.0-1.0); EOS # 0.4 10^3/uL (0.0-0.50); EOS % 5.7 % (0.0-3.0); HEMATOCRIT 37.8 % (36.0-47.0); IMMATURE GRANULOCYTE % 0.7 % (0-3.0); LYMPH # 2.5 10^3/uL (1.5-4.5); LYMPH % 33.2 % (24.0-44.0); MEAN CORPUSCULAR HEMOGLOBIN 29.8 pg (27.0-33.0); MEAN CORPUSCULAR HGB CONC 34.4 g/dl (32.0-36.5); MEAN CORPUSCULAR VOLUME 86.7 fl (80.0-96.0); MONO # 0.7 10^3/uL (0.0-0.8); MONO % 8.9 % (0.0-5.0); NEUTROPHILS # 3.8 10^3/uL (1.8-7.7); NEUTROPHILS % 50.8 % (36.0-66.0); PLATELET COUNT, AUTOMATED 204 10^3/uL (150-450); RED BLOOD COUNT 4.36 10^6/uL (4.00-5.40); RED CELL DISTRIBUTION WIDTH 12.8 % (11.5-14.5); WHITE BLOOD COUNT 7.5 10^3/uL (4.0-10.0)
[2018-01-09] MEDS: METOCLOPRAMIDE INJ 10MG/2ML VIAL (J2765) IV (18:07)
[2018-01-09] MEDS: diphenhydrAMINE INJ 50MG/ML VIAL (J1200) IV (18:07)
[2018-01-09] MEDS: NS 1,000 ML IV (18:07)
[2018-01-09 18:41] LABS: ALBUMIN/GLOBULIN RATIO 0.91 (1.00-1.93); ALKALINE PHOSPHATASE 79 U/L (45-117); ALT/SGPT 39 U/L (12-78); ANION GAP 9 MEQ/L (8-16); AST/SGOT 22 U/L (7-37); BILIRUBIN,DIRECT < 0.1 MG/DL (0.0-0.2); BILIRUBIN,TOTAL 0.1 MG/DL (0.2-1.0); BLOOD UREA NITROGEN 11 MG/DL (7-18); CALCIUM LEVEL 9.2 MG/DL (8.5-10.1); CARBON DIOXIDE LEVEL 29 MEQ/L (21-32); CHLORIDE LEVEL 102 MEQ/L (98-107); CPK CREATINE PHOSPHOKINASE 76 U/L (26-192); CREATININE FOR GFR 0.78 MG/DL (0.55-1.30); GLOMERULAR FILTRATION RATE > 60.0 (>51); GLUCOSE, FASTING 102 MG/DL (70-100); LIPASE 476 U/L (73-393); POTASSIUM SERUM 3.5 MEQ/L (3.5-5.1); SODIUM LEVEL 140 MEQ/L (136-145); TOTAL PROTEIN 8.4 GM/DL (6.4-8.2); TROPONIN I < 0.02 NG/ML (< 0.10)
[2018-01-09 18:47] LABS: CK-MB VALUE MASS < 1.0 NG/ML (<3.6); MB/CK RELATIVE INDEX 1.31 (< OR =4); NT-PRO BNP 15 PG/ML (<125)
== END 2018-01-09 19:35 | disposition home or self-care (01) ==
LOC: M ED 17:28
DX: R51 Headache (principal); R07.89 Other chest pain; I10 Essential (primary) hypertension; E78.5 Hyperlipidemia, unspecified; Z82.49 Family history of ischemic heart disease and other diseases of the circulatory system; Z86.73 Personal history of transient ischemic attack (TIA), and cerebral infarction without residual deficits; Z79.899 Other long term (current) drug therapy; Z88.8 Allergy status to other drugs, medicaments and biological substances
CPT/HCPCS: J1200

== ENCOUNTER 2018-01-31 11:53 | Day surgery (SDC) | payer OTHER ==
[~2018-01-31 11:53] MED LIST changes: -/ESOM40CA PO; -CIPR500T19 OR; -DETR4CAP PO; -FERR325T OR; -FLAG500T OR; -HYDR12.55 PO; -IRONTAB3 PO; +LIDOCAINE 1% MDV 20ML VIAL SQ; -LISI40TAB PO; -MOTRIN PO; -No Historical Meds; -OMEP20TA7 OR; -VICO5TAB16 PO
[2018-01-31] MEDS: LR 1,000 ML IV (12:40)
[2018-01-31] MEDS ORDERED: MIDAZOLAM INJ 2 MG/2 ML VIAL (J2250) As Ordered (13:51)
[2018-01-31] MEDS ORDERED: PROPOFOL 200 MG/20 ML VIAL As Ordered (13:51)
[2018-01-31] MEDS ORDERED: fentaNYL 100 MCG/2 ML INJECTION (J3010) As Ordered (13:51)
[2018-01-31] MEDS: LIDOCAINE 1% SDV INJ 30 ML VIAL As Ordered (14:20)
[2018-01-31] MEDS ORDERED: ONDANSETRON 4MG/2ML VIAL (J2405) IV (15:00)
[2018-01-31] MEDS ORDERED: PERCOCET 5MG/325MG TAB PO (15:00)
[2018-01-31] MEDS ORDERED: HYDROMORPHONE HCL 0.5 MG/ 0.5 ML SYRINGE (J1170 PER 1) IV (15:00)
[2018-01-31] MEDS ORDERED: fentaNYL 100 MCG/2 ML INJECTION (J3010) IV (15:00)
[2018-01-31] MEDS ORDERED: LR 1,000 ML IV (15:00)
== END 2018-01-31 15:30 | disposition home or self-care (01) ==
LOC: M SDC 15:30
DX: I63.9 Cerebral infarction, unspecified (principal); I10 Essential (primary) hypertension; E78.00 Pure hypercholesterolemia, unspecified; R51 Headache; E66.09 Other obesity due to excess calories; Z68.35 Body mass index [BMI] 35.0-35.9, adult; Z88.8 Allergy status to other drugs, medicaments and biological substances; Z79.899 Other long term (current) drug therapy; Z90.710 Acquired absence of both cervix and uterus
CPT/HCPCS: 33282

== ENCOUNTER → 2018-03-14 | Outpatient (CLI) | payer OTHER ==
[2018-03-14 14:36] LABS: FREE T4 1.09 NG/DL (0.76-1.46); RHEUMATOID FACTOR QUANT < 10.0 IU/ML (<15.0); TOTAL PROTEIN 7.6 GM/DL (6.4-8.2)
[2018-03-14 14:38] LABS: FOLATE > 24.0 NG/ML
[2018-03-14 15:09] LABS: ERYTHROCYTE SEDIMENTATION RATE 20 mm/hr (0-30)
[2018-03-15 11:09] LABS: ALBUMIN % 57.2 % (55.8-66.1)
[2018-03-15 11:10] LABS: ALBUMIN 4.35 GM/DL (3.29-5.55); ALPHA-2-GLOBULINS 0.81 GM/DL (0.42-0.99); ALPHA-2-GLOBULINS % 10.7 % (7.1-11.8); BETA-1-GLOBULINS 0.52 GM/DL (0.28-0.60); BETA-1-GLOBULINS % 6.8 % (4.7-7.2); BETA-2-GLOBULINS 0.42 GM/DL (0.19-0.55); BETA-2-GLOBULINS % 5.5 % (3.2-6.5); GAMMA GLOBULIN % 15.8 % (11.1-18.8)
[2018-03-17 14:32] LABS: ACETYLCHOLINE RCPTOR BINDING A < 0.03 nmol/L (0.00-0.24); VITAMIN B1 LEVEL WHOLE BLOOD 161.4 nmol/L (66.5-200.0); VITAMIN E(ALPHA TOCOPHEROL) 10.9 mg/L (7.0-25.1); VITAMIN E(GAMMA TOCOPHEROL) 1.1 mg/L (0.5-5.5)
[2018-03-18 00:06] LABS: ANTINUCLEAR ANTIBODIES DIRECT Negative (Negative); Methylmalonic Acid 244 nmol/L (0-378); SJOGREN'S ANTI SS-A <0.2 AI (0.0-0.9); SJOGREN'S ANTI SS-B <0.2 AI (0.0-0.9); STRIATIONAL ANTIBODIES Negative (Neg:<1:40)
== END ==
LOC: M WUC 08:31
DX: M35.00 Sjogren syndrome, unspecified (principal); R20.0 Anesthesia of skin; E07.9 Disorder of thyroid, unspecified; G70.00 Myasthenia gravis without (acute) exacerbation
CPT/HCPCS: 82746

== ENCOUNTER → 2018-04-24 | Outpatient (REF) | payer OTHER ==
[2018-04-24 11:32] LABS: ALBUMIN/GLOBULIN RATIO 1.14 (1.00-1.93); ALKALINE PHOSPHATASE 73 U/L (45-117); ALT/SGPT 63 U/L (12-78); ANION GAP 9 MEQ/L (8-16); AST/SGOT 36 U/L (7-37); BILIRUBIN,TOTAL 0.3 MG/DL (0.2-1.0); BLOOD UREA NITROGEN 18 MG/DL (7-18); CALCIUM LEVEL 8.8 MG/DL (8.5-10.1); CARBON DIOXIDE LEVEL 28 MEQ/L (21-32); CHLORIDE LEVEL 104 MEQ/L (98-107); CHOLESTEROL LEVEL 148 MG/DL (<200); CHOLESTEROL RISK RATIO 3.083 (<5); CREATININE FOR GFR 0.78 MG/DL (0.55-1.30); GLOMERULAR FILTRATION RATE > 60.0 (>51); GLUCOSE, FASTING 112 MG/DL (70-100); HDL CHOLESTEROL 48 MG/DL (>40); LDL CHOLESTEROL 61 MG/DL (<100); NON-HDL-C 100 MG/DL; POTASSIUM SERUM 3.9 MEQ/L (3.5-5.1); SODIUM LEVEL 141 MEQ/L (136-145); TOTAL PROTEIN 7.5 GM/DL (6.4-8.2); TRIGLYCERIDES LEVEL 195 MG/DL (<150)
[2018-04-24 11:34] LABS: HEMATOCRIT 38.8 % (36.0-47.0); HEMOGLOBIN 12.8 g/dl (12.0-15.5); MEAN CORPUSCULAR HEMOGLOBIN 28.9 pg (27.0-33.0); MEAN CORPUSCULAR VOLUME 87.6 fl (80.0-96.0); PLATELET COUNT, AUTOMATED 197 10^3/uL (150-450); RED BLOOD COUNT 4.43 10^6/uL (4.00-5.40); RED CELL DISTRIBUTION WIDTH 13.1 % (11.5-14.5); WHITE BLOOD COUNT 6.7 10^3/uL (4.0-10.0)
[2018-04-24 11:40] LABS: TOTAL 25(OH) VITAMIN D 24.6 NG/ML (30.0-100.0)
== END ==
LOC: M SFHCCLAY 08:18
DX: K21.9 Gastro-esophageal reflux disease without esophagitis (principal); I10 Essential (primary) hypertension; Z13.21 Encounter for screening for nutritional disorder

== ENCOUNTER → 2018-06-01 | Outpatient (CLI) | payer OTHER ==
[~2018-06-01] MED LIST changes: +/ESOM40CA PO; +ASPI81TAEC PO; +ATOR1TAB21 PO; +CHLO125TA; +CIPR500T19 OR; +CLOP75TA2 PO; +DETR4CAP PO; +FERR325T OR; +FLAG500T OR; +HYDR12.55 PO; +HYDR25TAB PO; +IRONTAB3 PO; -LIDOCAINE 1% MDV 20ML VIAL SQ; +LISI-542; +LISI10TA4; +LISI40TA PO; +LISI40TAB PO; +MOTRIN PO; +No Historical Meds; +OMEP20TA7 OR; +OMEP40CA2 PO; +VICO5TAB16 PO
--- NOTE | 2018-06-01 20:20 | REP ---
CT ABDOMEN WITHOUT CONTRAST: 06/01/2018. Comparison: CT angiogram chest 04/10/2017, CT abdomen without contrast 12/22/2015. Clinical history: Left adrenal mass as noted on an outside MRI lumbar spine in March. Technique: Noncontrast images were obtained. Findings: Mild chronic changes in the lung bases without effusion or acute infiltrate. No pulmonary nodule or mass. Heart not grossly enlarged. No pericardial thickening, effusion nor hiatal hernia. Some surgical clips about the GE junction. There is fatty infiltration of the liver with a vertical diameter of the liver less and 17 cm. No gross hepatomegaly. No hepatic mass or biliary dilatation. There is no splenomegaly or focal splenic lesion. Gallbladder is contracted. There is some retained food in the stomach. No calcified stones are noted about the gallbladder fossa, expected course of the common duct or in the pancreas. No pancreatic mass, ductal dilatation or adjacent inflammatory change/fluid collection. No aortic, retroperitoneal or peripancreatic adenopathy. Right adrenal gland is normal. Left adrenal gland again shows a 2.4 x 1.9 cm low density mass. It has CT attenuation values of about negative 6. The noncontrast study in 2016 showed negative 8 HU attenuation values and even the contrast enhanced CT angiogram chest showed negative 12 values because arterial contrast prominence did not reach the adrenal region. Small bowel loops and colon grossly unremarkable. The aorta without aneurysm. There is no ascites or free air. Bones show no acute compression deformity or destructive lesion. Impression: 1. There is a stable adrenal adenoma with benign features, negative CT attenuation values and size and appearance unchanged since December [address] There are no other significant findings. There is some fatty infiltration of the liver and postsurgical change from a prior Anton fundoplication. Electronically Signed by Kobe Martinez MD 06/02/2018 09:12 A
== END ==
LOC: M RAD 17:53
PROVIDERS: ATTEND Nurse Practitioner Family
DX: E27.9 Disorder of adrenal gland, unspecified (principal)

== ENCOUNTER 2018-09-06 11:17 | Emergency (ER) | payer OTHER ==
[~2018-09-06] VITALS: Ht 157.5 cm; Wt 94.5 kg
[~2018-09-06 11:17] MED LIST changes: -/ESOM40CA PO; +LISI40TA52 PO; -LISI40TAB PO; +NEXI1CAP3 PO
[2018-09-06] MEDS ORDERED: GABA-1171 (11:25)
--- NOTE | 2018-09-06 12:29 | REP ---
Duplex extremity venous ultrasound: T. History: Left calf tightness. Question DVT. Findings: The deep veins are anechoic and fully compressible from the groin to the popliteal fossa in the left lower extremity. Color flow imaging is homogeneous. Spectral Doppler interrogation demonstrates intact respiratory variation in flow and normal manual augmentation of flow. There is no evidence of deep vein thrombosis. Impression: Negative left lower extremity duplex venous ultrasound. No evidence of deep vein thrombosis. Electronically Signed by Bharat Nguyen MD 09/06/2018 12:21 P
[2018-09-06 13:53] LABS: BASO % 0.5 % (0.0-1.0); EOS # 0.3 10^3/uL (0.0-0.50); HEMATOCRIT 40.8 % (36.0-47.0); HEMOGLOBIN 13.6 g/dl (12.0-15.5); LYMPH # 2.2 10^3/uL (1.5-4.5); LYMPH % 35.6 % (24.0-44.0); MEAN CORPUSCULAR HEMOGLOBIN 29.6 pg (27.0-33.0); MEAN CORPUSCULAR HGB CONC 33.3 g/dl (32.0-36.5); MEAN CORPUSCULAR VOLUME 88.7 fl (80.0-96.0); MONO # 0.6 10^3/uL (0.0-0.8); MONO % 9.1 % (0.0-5.0); NEUTROPHILS # 3.1 10^3/uL (1.8-7.7); NEUTROPHILS % 49.5 % (36.0-66.0); PLATELET COUNT, AUTOMATED 208 10^3/uL (150-450); WHITE BLOOD COUNT 6.2 10^3/uL (4.0-10.0)
[2018-09-06 14:09] LABS: PROTHROMBIN TIME 13.3 SECONDS (12.1-14.4)
--- NOTE | 2018-09-06 14:09 | REP ---
: Four views. History: Swelling. Findings: Four views of the left ankle demonstrate an intact ankle mortise. There is anterior periarticular swelling. There is Achilles and plantar calcaneal spurring which is mild. No fractures seen. Impression: No acute bony abnormality. Anterior swelling. Heel spurring. Electronically Signed by Bharat Nguyen MD 09/06/2018 02:00 P
[2018-09-06 14:10] LABS: PARTIAL THROMBOPLASTIN TIME 27.1 SECONDS (25.4-37.6)
--- NOTE | 2018-09-06 14:12 | REP ---
Left knee series: Five views. History: Swelling. Findings: Five views of the left knee demonstrate articular spurring of the patella superiorly and inferiorly on lateral film consistent with osteoarthritis. Small joint effusion is suspected. There is a dystrophic calcification anteriorly and medially in the extra-articular soft tissues. Bones, joints and soft tissues are otherwise unremarkable. Impression: Mild patellofemoral osteoarthritis. Possible small joint effusion. Electronically Signed by Bharat Nguyen MD 09/06/2018 02:02 P
[2018-09-06 14:26] LABS: ERYTHROCYTE SEDIMENTATION RATE 20 mm/hr (0-30)
[2018-09-06 14:30] LABS: ALBUMIN 4.2 GM/DL (3.2-5.2); ALT/SGPT 76 U/L (12-78); BILIRUBIN,DIRECT < 0.1 MG/DL (0.0-0.2); BILIRUBIN,TOTAL 0.3 MG/DL (0.2-1.0); BLOOD UREA NITROGEN 14 MG/DL (7-18); C REACTIVE PROTEIN QUANTITATIV 0.47 MG/DL (0.00-0.30); CALCIUM LEVEL 9.3 MG/DL (8.5-10.1); CARBON DIOXIDE LEVEL 28 MEQ/L (21-32); CHLORIDE LEVEL 105 MEQ/L (98-107); CREATININE FOR GFR 0.68 MG/DL (0.55-1.30); GLOMERULAR FILTRATION RATE > 60.0 (>51); GLUCOSE, FASTING 97 MG/DL (70-100); POTASSIUM SERUM 3.6 MEQ/L (3.5-5.1); SODIUM LEVEL 140 MEQ/L (136-145)
[2018-09-06 15:34] VITALS: BP 148/73
== END 2018-09-06 15:37 | disposition home or self-care (01) ==
LOC: M ED 11:17
DX: M17.12 Unilateral primary osteoarthritis, left knee (principal); M19.072 Primary osteoarthritis, left ankle and foot; I10 Essential (primary) hypertension; E78.5 Hyperlipidemia, unspecified; K21.9 Gastro-esophageal reflux disease without esophagitis; M54.9 Dorsalgia, unspecified; I67.1 Cerebral aneurysm, nonruptured; Z86.73 Personal history of transient ischemic attack (TIA), and cerebral infarction without residual deficits; Z79.899 Other long term (current) drug therapy; Z88.8 Allergy status to other drugs, medicaments and biological substances

== ENCOUNTER → 2018-09-17 | Outpatient (REF) | payer OTHER ==
[~2018-09-17] MED LIST changes: +GABA-1171
[2018-09-17 15:18] LABS: BASO # 0.1 10^3/uL (0.0-0.2); BASO % 0.6 % (0.0-1.0); EOS # 0.4 10^3/uL (0.0-0.50); EOS % 4.4 % (0.0-3.0); HEMATOCRIT 38.8 % (36.0-47.0); HEMOGLOBIN 13.1 g/dl (12.0-15.5); LYMPH # 2.5 10^3/uL (1.5-4.5); LYMPH % 31.1 % (24.0-44.0); MEAN CORPUSCULAR HEMOGLOBIN 30.1 pg (27.0-33.0); MEAN CORPUSCULAR HGB CONC 33.8 g/dl (32.0-36.5); MEAN CORPUSCULAR VOLUME 89.2 fl (80.0-96.0); MONO # 0.7 10^3/uL (0.0-0.8); MONO % 8.9 % (0.0-5.0); NEUTROPHILS # 4.3 10^3/uL (1.8-7.7); NEUTROPHILS % 54.7 % (36.0-66.0); PLATELET COUNT, AUTOMATED 216 10^3/uL (150-450); RED BLOOD COUNT 4.35 10^6/uL (4.00-5.40); WHITE BLOOD COUNT 7.9 10^3/uL (4.0-10.0)
[2018-09-17 15:33] LABS: HEMOGLOBIN A1c 6.4 %
[2018-09-17 15:48] LABS: ALBUMIN 4.2 GM/DL (3.2-5.2); ALT/SGPT 74 U/L (12-78); BILIRUBIN,TOTAL 0.3 MG/DL (0.2-1.0); BLOOD UREA NITROGEN 14 MG/DL (7-18); CARBON DIOXIDE LEVEL 25 MEQ/L (21-32); CHLORIDE LEVEL 106 MEQ/L (98-107); CREATININE FOR GFR 0.68 MG/DL (0.55-1.30); FREE T4 1.22 NG/DL (0.76-1.46); GLOMERULAR FILTRATION RATE > 60.0 (>51); GLUCOSE, FASTING 89 MG/DL (70-100); POTASSIUM SERUM 3.7 MEQ/L (3.5-5.1); SODIUM LEVEL 138 MEQ/L (136-145); TOTAL PROTEIN 7.3 GM/DL (6.4-8.2)
[2018-09-17 16:13] LABS: VITAMIN B12 LEVEL 799 PG/ML (247-911)
[2018-09-17 16:14] LABS: FOLATE 21.7 NG/ML (>5.4)
[2018-09-22 00:06] LABS: VITAMIN E(ALPHA TOCOPHEROL) 12.9 mg/L (7.0-25.1); VITAMIN E(GAMMA TOCOPHEROL) 1.3 mg/L (0.5-5.5)
== END ==
LOC: M LABNEURO 14:23
PROVIDERS: ATTEND Psychiatry & Neurology Neurology
DX: E07.9 Disorder of thyroid, unspecified (principal)

== ENCOUNTER → 2018-10-25 | Outpatient (REF) | payer OTHER ==
[~2018-10-25] MED LIST changes: +CENT1TAB PO; +CHLO25TA PO; -GABA-1171; +GABA-1171 PO; +LISI-538 PO; +PLAV1TAB2 PO; +VITA100018 PO; +VITAD1000T PO
[2018-10-25 12:31] LABS: HEMOGLOBIN A1c 6.1 %
[2018-10-25 12:39] LABS: CHOLESTEROL RISK RATIO 2.755 (<5)
[2018-10-25 12:48] LABS: TOTAL 25(OH) VITAMIN D 39.8 NG/ML (30.0-100.0)
== END ==
LOC: M SFHCCLAY 09:03
PROVIDERS: ATTEND Nurse Practitioner Family
DX: R73.9 Hyperglycemia, unspecified (principal); G45.9 Transient cerebral ischemic attack, unspecified; E55.9 Vitamin D deficiency, unspecified
CPT/HCPCS: 80061; 82306; 82947; 83036; G0463

== ENCOUNTER → 2018-10-26 | Outpatient (CLI) | payer OTHER ==
[~2018-10-26] MED LIST changes: -CENT1TAB PO; -CHLO25TA PO; +GABA-1171; -GABA-1171 PO; -LISI-538 PO; -PLAV1TAB2 PO; -VITA100018 PO; -VITAD1000T PO
--- NOTE | 2018-10-30 08:11 | SLEEPCENT ---
DATE OF STUDY: 10/26/2018 ORDERED BY: Myrna Lanier. Nocturnal polysomnography was performed for evaluation of sleep physiology in this patient with history of excessive somnolence, morning headaches and nonrestorative sleep who has comorbidities of hypertension, history of cerebrovascular accident. 8 hours and 4 minutes of data were reviewed. There are 464.5 minutes of sleep identified. Sleep latency was short at 5 minutes. REM latency was normal at 96 minutes. Sleep architecture was fair with three REM cycles. Overall sleep efficiency was 97.2%. The electrocardiogram showed a sinus rhythm with an average heart rate of 56 beats per minute. EEG showed normal waveforms for awake and sleep. There were 66 respiratory events identified of 10 seconds in duration or greater for an apnea-hypopnea index of 8.5. The events were primarily obstructive not exclusive to sleep stage nor body posture. Arousals from respiratory events occurred 3.7 times per hour and oxygen desaturations were seen into the 80s. Remaining measures of sleep physiology were normal. IMPRESSION: Obstructive sleep apnea syndrome (G47.33). Apnea-hypopnea index 8.5. RECOMMENDATIONS: The patient should be encouraged to return to sleep disorder center for pressure therapy. In the interim, alcohol and sedative avoidance should be practiced and caution exercised during operation of motor vehicles. cc: Narda Rosa NP
== END ==
LOC: M SLEEP 19:17
PROVIDERS: ATTEND Nurse Practitioner Family
DX: G47.33 Obstructive sleep apnea (adult) (pediatric) (principal)

== ENCOUNTER → 2018-11-11 | Outpatient (CLI) | payer OTHER ==
[~2018-11-11] MED LIST changes: +CENT1TAB PO; +CHLO25TA PO; -GABA-1171; +GABA-1171 PO; +LISI-538 PO; +PLAV1TAB2 PO; +VITA100018 PO; +VITAD1000T PO
--- NOTE | 2018-11-12 18:55 | SLEEPCENT ---
DATE OF PROCEDURE: 11/11/2018 ORDERED BY: Myrna Lanier Nocturnal polysomnography was performed for the titration of pressure therapy in this patient with obstructive sleep apnea syndrome. Apnea-hypopnea index 8.5. For testing the patient was fit with a ResMed air fit full face mask of medium size. 4 cm of water pressure were applied to the circuit the lights were extinguished. 7 hours and 43 minutes of data were reviewed. There are 425 minutes of sleep identified. Sleep latency was normal at 10.5 minutes. REM latency was delayed at 155 minutes. Sleep architecture improved with optimal pressure therapy. Four REM cycles were noted. Overall sleep efficiency 92.7%. The electrocardiogram showed sinus rhythm with an average heart rate of 56 beats per minute. EEG showed normal waveforms for awake and sleep. Respiratory events were best palliated with C-PAP at a pressure of +6 and remaining measures of sleep physiology were within normal limits. IMPRESSION: Obstructive sleep apnea syndrome (G47.33) RECOMMENDATIONS: Nightly use of pressure therapy 6 cm of water.
== END ==
LOC: M SLEEP 20:00
PROVIDERS: ATTEND Nurse Practitioner Family
DX: G47.33 Obstructive sleep apnea (adult) (pediatric) (principal)

== ENCOUNTER 2018-11-23 15:11 | Inpatient (IN) | payer OTHER ==
[~2018-11-23] VITALS: Ht 157.5 cm; Wt 87.0 kg
[~2018-11-23 15:11] MED LIST changes: -CENT1TAB PO; -CHLO25TA PO; -LISI-538 PO; -PLAV1TAB2 PO; -VITA100018 PO; -VITAD1000T PO
--- NOTE | 2018-11-23 15:46 | REP ---
CT brain without contrast: History: Stroke like symptoms. Comparison head CT study 01/09/2018. Findings: Digital preliminary four h agent radiograph is unremarkable. No bony calvarial defect is seen. The visualized paranasal sinuses are clear. No intraorbital abnormality is appreciated. There is minimal generalized atrophy. Ventricular size and configuration is unchanged from the comparison study. There is no evidence of infarct, hemorrhage, mass, extra-axial fluid collection or midline shift. Impression: Minimal generalized volume loss. No acute intracranial abnormality. Electronically Signed by Bharat Nguyen MD 11/23/2018 08:20 P
--- NOTE | 2018-11-23 16:00 | REP ---
CHEST, SINGLE VIEW: Single view of the chest is performed and compared to prior study of 01/09/2018. There is no acute infiltrate or pulmonary edema. There is mild cardiomegaly. Mediastinal silhouette is unchanged. Electronically Signed by Stephen Eldridge MD 11/26/2018 01:06 P
[2018-11-23 16:01] LABS: BASO # 0.1 10^3/uL (0.0-0.2); BASO % 0.7 % (0.0-1.0); EOS # 0.4 10^3/uL (0.0-0.50); EOS % 4.8 % (0.0-3.0); HEMATOCRIT 39.9 % (36.0-47.0); HEMOGLOBIN 13.3 g/dl (12.0-15.5); LYMPH # 2.2 10^3/uL (1.5-4.5); LYMPH % 28.9 % (24.0-44.0); MEAN CORPUSCULAR HEMOGLOBIN 30.4 pg (27.0-33.0); MEAN CORPUSCULAR HGB CONC 33.3 g/dl (32.0-36.5); MEAN CORPUSCULAR VOLUME 91.1 fl (80.0-96.0); MONO # 0.7 10^3/uL (0.0-0.8); MONO % 9.9 % (0.0-5.0); NEUTROPHILS # 4.2 10^3/uL (1.8-7.7); NEUTROPHILS % 55.4 % (36.0-66.0); PLATELET COUNT, AUTOMATED 171 10^3/uL (150-450); RED BLOOD COUNT 4.38 10^6/uL (4.00-5.40); WHITE BLOOD COUNT 7.5 10^3/uL (4.0-10.0)
[2018-11-23 16:13] LABS: INR 0.98; PROTHROMBIN TIME 12.7 SECONDS (11.8-14.0)
[2018-11-23 16:14] LABS: PARTIAL THROMBOPLASTIN TIME 25.2 SECONDS (25.0-38.4)
[2018-11-23 16:26] LABS: BLOOD UREA NITROGEN 12 MG/DL (7-18); CALCIUM LEVEL 8.8 MG/DL (8.5-10.1); CARBON DIOXIDE LEVEL 30 MEQ/L (21-32); CHLORIDE LEVEL 106 MEQ/L (98-107); CK-MB VALUE MASS 1.6 NG/ML (<3.6); CPK CREATINE PHOSPHOKINASE 54 U/L (26-192); CREATININE FOR GFR 0.68 MG/DL (0.55-1.30); GLOMERULAR FILTRATION RATE > 60.0 (>51); GLUCOSE, FASTING 74 MG/DL (70-100); MB/CK RELATIVE INDEX 2.96 (< OR =4); POTASSIUM SERUM 3.5 MEQ/L (3.5-5.1); SODIUM LEVEL 144 MEQ/L (136-145); TROPONIN I < 0.02 NG/ML (< 0.10)
[2018-11-23] MEDS ORDERED: VITA100018 PO (17:35)
[2018-11-23] MEDS ORDERED: VITAD1000T PO (17:35)
[2018-11-23] MEDS ORDERED: CENT1TAB PO (17:35)
[2018-11-23] MEDS ORDERED: PLAV1TAB2 PO (17:35)
[2018-11-23] MEDS ORDERED: CHLO25TA PO (17:35)
[2018-11-23] MEDS ORDERED: LISI-538 PO (17:35)
[2018-11-23] MEDS ORDERED: ATOR1TAB21 PO (17:35)
--- NOTE | 2018-11-23 17:56 | HPEPDOC ---
[facility] Medical History & Physical Date of Admission Nov 23, 2018 History and Physical CHIEF COMPLAINT: dizziness HISTORY OF PRESENT ILLNESS: 58 yo female with history of multiple cva's, although not entirely clear if these were real strokes. No imaging here to confirm CVA. This morning she woke up feeling dizzy. she thought it would pass, however her symptoms persisted, prompting her to present to the ED. [facility] stroke center was contacted, they stated she has received tPa in the past, but suggested an EEG for further eval. On eval, she still has dizziness, but denies any other symptoms. Denies headaches, changes in vision, chest pain, shortness of breath, abdominal pain, N/V/D. PAST MEDICAL HISTORY: #iron deficiency anemia #fatty liver disease #Gastic ulcer #GERD #HTN #CVA 2014,2016,08/03/1017 #Brain aneurysm ALLERGIES: Please see below. REVIEW OF SYSTEMS: Negative except as per HPI HOME MEDICATIONS: Please see below. PHYSICAL EXAMINATION: VITAL SIGNS: Please see below GENERAL APPEARANCE: NAD, lying comfortably in bed HEENT: NC/AT, EOMI, PERRLA, holding head still due to dizziness CARDIOVASCULAR: +S1S2, RRR LUNGS: CTA B/L ABDOMEN: soft, NT, +BS NEUROLOGICAL: sensation intact throughout, CN II-XII grossly in tact, diminished strength RUE/RLE PSYCHIATRIC: AAOx3 LABORATORY DATA: See below. MICROBIOLOGY: Please see below. ASSESSMENT: 58 yo female for sign/symptoms of CVA with history of multiple CVA. #CVA - telemetry - PT/OT - not certain if her history of multiple CVA's is accurate - no diagnostic evidence of CVA - seizures? - EEG pending - continue plavix, statin therapy - does not tolerate aspirin due to GI di [place] - neurology c/s #HTN - lisinopril, chlorthalidone #GERD #anemia #brain aneurysm #DVT prophylaxis - mechanical Vital Signs Vital Signs Date Time Temp Pulse Resp B/P (MAP) Pulse Ox O2 Delivery O2 Flow Rate FiO2 11/23/18 17:15 67 128/73 (91) 98 11/23/18 16:30 16 Room Air 11/23/18 15:15 98.2 Laboratory Data Labs 24H Laboratory Tests 2 11/23/18 15:50: Immature Granulocyte % (Auto) 0.3, White Blood Count 7.5, Red Blood Count 4.38, Hemoglobin 13.3, Hematocrit 39.9, Mean Corpuscular Volume 91.1, Mean Corpuscular Hemoglobin 30.4, Mean Corpuscular Hemoglobin Concent 33.3, Red Cell Distribution Width 12.4, Platelet Count 171, Neutrophils (%) (Auto) 55.4, Lymphocytes (%) (Auto) 28.9, Monocytes (%) (Auto) 9.9H, Eosinophils (%) (Auto) 4.8H, Basophils (%) (Auto) 0.7, Neutrophils # (Auto) 4.2, Lymphocytes # (Auto) 2.2, Monocytes # (Auto) 0.7, Eosinophils # (Auto) 0.4, Basophils # (Auto) 0.1, Nucleated Red Blood Cells % (auto) 0.0, Prothrombin Time 12.7, Prothromb Time International Ratio 0.98, Activated Partial Thromboplast Time 25.2, Anion Gap 8, Glomerular Filtration Rate > 60.0, Blood Urea Nitrogen 12, Creatinine 0.68, Sodium Level 144, Potassium Level 3.5, Chloride Level 106, Carbon Dioxide Level 30, Calcium Level 8.8, Total Creatine Kinase 54, Creatine Kinase MB 1.6, Creatine Kinase MB Relative Index 2.96, Troponin I < 0.02 CBC/BMP Laboratory Tests 11/23/18 15:50 Red Blood Count 4.38, Mean Corpuscular Volume 91.1, Mean Corpuscular Hemoglobin 30.4, Mean Corpuscular Hemoglobin Concent 33.3, Red Cell Distribution Width 12.4, Neutrophils (%) (Auto) 55.4, Lymphocytes (%) (Auto) 28.9, Monocytes (%) (Auto) 9.9 H, Eosinophils (%) (Auto) 4.8 H, Basophils (%) (Auto) 0.7, Neutrophils # (Auto) 4.2, Lymphocytes # (Auto) 2.2, Monocytes # (Auto) 0.7, Eosinophils # (Auto) 0.4, Basophils # (Auto) 0.1, Calcium Level 8.8, Total Creatine Kinase 54 Home Medications Scheduled Atorvastatin Calcium (Atorvastatin Calcium) 20 Mg Tablet, 20 MG PO DAILY Chlorthalidone (Chlorthalidone) 25 Mg Tablet, 12.5 MG PO DAILY Clopidogrel Bisulfate (Plavix) 75 Mg Tablet, 75 MG PO DAILY Cyanocobalamin (Vitamin B-12) (Vitamin B-12) 1,000 Mcg Tablet, 1,000 MCG PO DAILY Gabapentin (Gabapentin) 100 Mg Capsule, 100 MG PO TID Lisinopril (Lisinopril) 20 Mg Tablet, 20 MG PO QHS Multivit-Min/FA/Lycopen/Lutein (Centrum Silver Tablet) 1 Each Tablet, 1 TAB PO DAILY Vitamin D (Vitamin D3) 1,000 Unit Tablet, 1,000 UNITS PO DAILY Allergies Coded Allergies: albuterol (Verified Adverse Reaction, Intermediate, 11/23/18) dyspnea ipratropium (Verified Adverse Reaction, Intermediate, 11/23/18) dypsnea A-FIB/CHADSVASC A-FIB History Current/History of A-Fib/PAF?: No Current PO Anticoag Therapy: TOREY Mcnally MD Nov 23, 2018 17:56
[2018-11-23 20:00] VITALS: BP 138/75
--- NOTE | 2018-11-23 20:45 | ECGEPIP ---
[facility] - ED Test Date: 2018-11-23 Pat Name: SARINA FREEDMAN Department: Room: - Gender: Female Director Selection And Administration: : 1960 Requested By: JUNAID Martinez Order Number: [id number] Reading MD: Padilla Webster Measurements Intervals [place] Rate: 72 P: 30 SD: 155 QRS: QRSD: 88 T: 5 QT: 400 QTc: 440 Interpretive Statements SINUS RHYTHM NONSPECIFIC ST T WAVE CHANGES 01/09/[address] T WAVE CHANGES Electronically Signed on 11-23-2018 20:45:13 EDT by Padilla Webster
--- NOTE | 2018-11-23 20:48 | REPVR ---
EXAM: MR Angiogram Head Without Contrast, Arteries EXAM DATE/TIME: 11/23/2018 8:09 PM CLINICAL HISTORY: 58 years old, female; Dizziness and giddiness and speech disturbance and weakness; Aphasia; Additional info: Eval CVA TECHNIQUE: Imaging protocol: MR angiogram head without contrast. Exam focused on the arteries. 3D rendering: MIP reconstructed images were created and reviewed. COMPARISON: MRA BRAIN W/O CONTRAST 04/10/2017 4:45 AM FINDINGS: Anterior circulation: Normal flow signal and luminal caliber in the petrous, cavernous and supraclinoid internal carotid arteries. Normal appearance of the anterior cerebral artery branches and middle cerebral artery branches through the MCA trifurcations. No occlusion, high-grade focal stenosis or dissection. No aneurysm. Posterior circulation: Normal distal vertebral arteries, with patent normal caliber basilar artery, and normal superior cerebellar and posterior cerebral arteries. No occlusion, high-grade stenosis or aneurysm. IMPRESSION: Unremarkable MR angiogram of the [place] of [place] and intracranial vertebrobasilar system. Electronically signed by: Marcelino Romero On 11/23/2018 20:48:10 PM
--- NOTE | 2018-11-23 20:54 | REPVR ---
EXAM: MR Head Without Contrast EXAM DATE/TIME: 11/23/2018 8:09 PM CLINICAL HISTORY: 58 years old, female; Dizziness and speech disturbance and weakness, extremity; Bilateral; Aphasia; Additional info: Eval CVA TECHNIQUE: Imaging protocol: MR of the head without contrast. COMPARISON: MRI-Brain without Contrast 04/10/2017 4:53 AM FINDINGS: No abnormal restriction of diffusion to indicate acute CVA. Midline structures and cerebellar tonsillar position appear normal. Ventricles, cisterns and sulci are symmetrically prominent. No intracranial mass, midline shift or abnormal extra-axial fluid. No acute intracranial hemorrhage. No abnormal white matter signal on FLAIR and T2 sequences. Optic chiasm and pituitary infundibulum appear normal. Normal vascular flow voids in major intracranial arteries and dural venous sinuses. Paranasal sinuses are clear. Mastoid air cells are normally aerated. Optic globes and orbits are unremarkable. IMPRESSION: No acute intracranial abnormality. Symmetric atrophy, without significant change in pattern since the prior MRI Electronically signed by: Marcelino Romero On 11/23/2018 20:53:57 PM
[2018-11-23] MEDS: LISINOPRIL 20 MG TAB PO SCH (21:00)
[2018-11-23] MEDS: GABAPENTIN 100 MG CAP PO SCH (21:04)
[2018-11-24] VITALS (8 sets, daily range): BP systolic 106–179; BP diastolic 63–98
--- NOTE | 2018-11-24 02:02 | REPVR ---
EXAM: US Duplex Bilateral Extracranial Arteries EXAM DATE/TIME: 11/23/2018 6:48 PM CLINICAL HISTORY: 58 years old, female; Dizziness; Additional info: CVA TECHNIQUE: Imaging protocol: Real-time Duplex ultrasound scan of the Bilateral carotid and vertebral arteries combining palmer scale, color Doppler and spectral waveform analysis. COMPARISON: MRI-Brain without Contrast 04/10/2017 4:53 AM FINDINGS: Visualized portions of the bilateral common carotid, internal carotid, and external carotid arteries reveals no occlusion or dissection flap. Minimal bilateral atherosclerotic plaque. Doppler evaluation shows normal flow directionality. Peak systolic velocities (in cm/sec) are as follows: Right CCA: 66 Right ICA: 58 Right ECA: 62 Right I/C ratio: 0.87 Right Vertebral: Anterograde directionality Left CCA: 72 Left ICA: 51 Left ECA: 64 Left I/C ratio: 0.7 Left Vertebral: Antegrade directionality IMPRESSION: No hemodynamically significant stenosis. Electronically signed by: Marcelino Romero On 11/24/2018 02:01:40 AM
[2018-11-24 06:16] LABS: HEMOGLOBIN 12.3 g/dl (12.0-15.5); MEAN CORPUSCULAR HEMOGLOBIN 29.5 pg (27.0-33.0); MEAN CORPUSCULAR HGB CONC 33.2 g/dl (32.0-36.5); MEAN CORPUSCULAR VOLUME 88.7 fl (80.0-96.0); PLATELET COUNT, AUTOMATED 181 10^3/uL (150-450); RED BLOOD COUNT 4.17 10^6/uL (4.00-5.40); WHITE BLOOD COUNT 6.6 10^3/uL (4.0-10.0)
[2018-11-24 06:41] LABS: ALBUMIN 3.6 GM/DL (3.2-5.2); ALT/SGPT 38 U/L (12-78); BILIRUBIN,TOTAL 0.2 MG/DL (0.2-1.0); BLOOD UREA NITROGEN 17 MG/DL (7-18); CALCIUM LEVEL 8.8 MG/DL (8.5-10.1); CARBON DIOXIDE LEVEL 30 MEQ/L (21-32); CHLORIDE LEVEL 105 MEQ/L (98-107); CHOLESTEROL LEVEL 128 MG/DL (<200); CHOLESTEROL RISK RATIO 2.844 (<5); CREATININE FOR GFR 0.67 MG/DL (0.55-1.30); GLOMERULAR FILTRATION RATE > 60.0 (>51); GLUCOSE, FASTING 105 MG/DL (70-100); HDL CHOLESTEROL 45 MG/DL (>40); LDL CHOLESTEROL 58 MG/DL (<100); NON-HDL-C 83 MG/DL; POTASSIUM SERUM 3.4 MEQ/L (3.5-5.1); SODIUM LEVEL 141 MEQ/L (136-145); TOTAL PROTEIN 7.2 GM/DL (6.4-8.2); TRIGLYCERIDES LEVEL 124 MG/DL (<150)
[2018-11-24] MEDS: CLOPIDOGREL 75 MG TAB PO SCH (08:12)
[2018-11-24] MEDS: ATORVASTATIN 20 MG TAB PO SCH (08:12)
[2018-11-24] MEDS: VITAMIN D 1,000 INTERNATIONAL UNITS TABLET PO SCH (08:12)
[2018-11-24] MEDS: GABAPENTIN 100 MG CAP PO SCH ×3 (08:13→21:22)
[2018-11-24] MEDS: MULTIVITAMINS/MINERALS THERAP 1 TAB PO SCH (08:13)
[2018-11-24] MEDS: CHLORTHALIDONE 12.5MG PER 1/2 TABLET PO SCH (08:13)
[2018-11-24] MEDS: CYANOCOBALAMIN 500 MCG TAB PO SCH (08:13)
[2018-11-24 11:50] LABS: MAGNESIUM LEVEL 1.9 MG/DL (1.8-2.4)
--- NOTE | 2018-11-24 11:57 | IPNPDOC ---
Subjective Date Seen The patient was seen on 11/24/18. Subjective Chief Complaint/HPI still a little dizzy this am while attempting to read General: Denies: Chills, Night Sweats Constitutional: Denies: Chills Eyes: Denies: Pain ENT: Denies: Head Aches, Dysphagia Skin: Denies: Rash, Lesions Pulmonary: Denies: Dyspnea, Cough Cardiovascular: Denies: Chest Pain, Palpitations, Orthopnea Gastrointestinal: Denies: Nausea, Vomiting, Abdominal Pain Genitourinary: Denies: Dysuria Hematologic: Denies: Bruising, Petecchia Musculoskeletal: Denies: Neck Pain Neurological: Reports: Change in speech (reports transient difficulty with speech that she felt was like stuttering at time of arrival of EMS at her home); Denies: Confusion Psych: Reports: Mood Normal Objective Physical Examination General Exam: Positive: Alert, No Acute Distress Eye Exam: Positive: PERRLA, EOMI, Ptosis (hint of ptosis, bilaterally perhaps slightly more prominent with left) ENT Exam: Positive: Atraumatic Neck Exam: Positive: Supple, JVD, thyromegaly Chest Exam: Positive: Clear to auscultation; Negative: Rales, Wheezing Heart Exam: Positive: Rate Normal; Negative: Murmurs Abdomen Exam: Positive: Normal bowel sounds, Soft; Negative: Tenderness Extremity Exam: Negative: Clubbing, Edema Skin Exam: Negative: Nl turgor and temperature, Rash Neuro Exam: Positive: Normal Speech (no focal weakness, no nystagmus. ) Psych Exam: Positive: Mental status NL Assessment /Plan Problems (1) Vertigo Status: Acute Response to Treatment: Improving Problem Specific Plan: Consult Specialist Problem Text: MRI,MRA of brain unrevealing but patient reports having imaging study elsewhere (?[place]) that may have identified a small aneurysm. this am symptoms are minimal, some sense of dizziness/vertigo while looking down attempting to read. symptom of vertigo seemed somewhat related to movement but did not extinguish quickly. not accompanied by hearing abnormalities or other noted deficits. Dr. Virk has been consulted. EEG has been ordered. (2) Essential hypertension Status: Chronic Response to Treatment: Stable (3) Hypokalemia Status: Acute Problem Text: LIKELY secondary to chlorthalidone use for BP control 40mEq po given today. will likely require supplement chronically. Plan/VTE VTE Prophylaxis Ordered?: Yes Plan Anticipated Discharge: Home VS, I&O, 24H, [facility] Vital Signs/I&O Vital Signs Date Time Temp Pulse Resp B/P (MAP) Pulse Ox O2 Delivery O2 Flow Rate FiO2 11/24/18 08:00 98.0 69 13 159/90 (113) 96 11/23/18 16:30 Room Air I&O- Last 24 Hours up to 6 AM 11/24/18 06:00 Intake Total 0 ml Output Total 0 ml Balance 0 ml Laboratory Data 24H LABS Laboratory Tests 2 11/23/18 15:34: Bedside Glucose (Misc Panel) 71 11/23/18 15:50: Immature Granulocyte % (Auto) 0.3, White Blood Count 7.5, Red Blood Count 4.38, Hemoglobin 13.3, Hematocrit 39.9, Mean Corpuscular Volume 91.1, Mean Corpuscular Hemoglobin 30.4, Mean Corpuscular Hemoglobin Concent 33.3, Red Cell Distribution Width 12.4, Platelet Count 171, Neutrophils (%) (Auto) 55.4, Lymphocytes (%) (Auto) 28.9, Monocytes (%) (Auto) 9.9H, Eosinophils (%) (Auto) 4.8H, Basophils (%) (Auto) 0.7, Neutrophils # (Auto) 4.2, Lymphocytes # (Auto) 2.2, Monocytes # (Auto) 0.7, Eosinophils # (Auto) 0.4, Basophils # (Auto) 0.1, Nucleated Red Blood Cells % (auto) 0.0, Prothrombin Time 12.7, Prothromb Time International Ratio 0.98, Activated Partial Thromboplast Time 25.2, Anion Gap 8, Glomerular Filtration Rate > 60.0, Blood Urea Nitrogen 12, Creatinine 0.68, Sodium Level 144, Potassium Level 3.5, Chloride Level 106, Carbon Dioxide Level 30, Calcium Level 8.8, Total Creatine Kinase 54, Creatine Kinase MB 1.6, Creatine Kinase MB Relative Index 2.96, Troponin I < 0.02 11/24/18 05:41: Nucleated Red Blood Cells % (auto) 0.0, Anion Gap 6L, Glomerular Filtration Rate > 60.0, Blood Urea Nitrogen 17, Creatinine 0.67, Sodium Level 141, Potassium Level 3.4L, Chloride Level 105, Carbon Dioxide Level 30, Calcium Level 8.8, Aspartate Amino Transf (AST/SGOT) 16, Alanine Aminotransferase (ALT/SGPT) 38, Alkaline Phosphatase 75, Total Bilirubin 0.2, Triglycerides Level 124, LDL Cholesterol 58, Total Protein 7.2, Albumin 3.6, Albumin/Globulin Ratio 1.00, Total Cholesterol 128, Non-HDL Cholesterol (LDL + VLDL) 83, Total HDL Cholesterol 45, Cholesterol/HDL Ratio 2.844 CBC/BMP Laboratory Tests 11/23/18 15:50 Red Blood Count 4.38, Mean Corpuscular Volume 91.1, Mean Corpuscular Hemoglobin 30.4, Mean Corpuscular Hemoglobin Concent 33.3, Red Cell Distribution Width 12.4, Neutrophils (%) (Auto) 55.4, Lymphocytes (%) (Auto) 28.9, Monocytes (%) (Auto) 9.9 H, Eosinophils (%) (Auto) 4.8 H, Basophils (%) (Auto) 0.7, Neutrophils # (Auto) 4.2, Lymphocytes # (Auto) 2.2, Monocytes # (Auto) 0.7, Eosinophils # (Auto) 0.4, Basophils # (Auto) 0.1, Calcium Level 8.8, Total Creatine Kinase 54 11/24/18 05:41 Red Blood Count 4.17, Mean Corpuscular Volume 88.7, Mean Corpuscular Hemoglobin 29.5, Mean Corpuscular Hemoglobin Concent 33.2, Red Cell Distribution Width 12.6, Calcium Level 8.8, Aspartate Amino Transf (AST/SGOT) 16, Alanine Aminotransferase (ALT/SGPT) 38, Alkaline Phosphatase 75, Total Bilirubin 0.2, Triglycerides Level 124, LDL Cholesterol 58, Total Protein 7.2, Albumin 3.6 Romulo Kirkpatrick MD Nov 24, 2018 11:57
[2018-11-24] MEDS ORDERED: POTASSIUM CHLORIDE 10 MEQ SR TABLET PO ONE (12:00)
[2018-11-24] MEDS: ENOXAPARIN 40 MG/0.4 ML SYRINGE (J1650) SC SCH (14:07)
[2018-11-24] MEDS: LISINOPRIL 20 MG TAB PO SCH (21:00)
--- NOTE | 2018-11-25 02:12 | CR ---
DATE OF CONSULTATION: 11/24/2018 REFERRING PHYSICIAN: Hemal Martinez MD REASON FOR CONSULTATION: Dizziness. HISTORY OF PRESENT ILLNESS: Julissa Augustine is a 58-year-old woman with history of benign positional vertigo. The patient states that she had vertigo all her life. She has episodes of vertigo every couple of years. She has felt dizziness, spinning sensation with her episodes of vertigo. She woke up yesterday and again felt dizzy, nausea and vomited. She felt slightly off balance. There was no spinning sensation this time. She also felt neck pain and jaw pain. She has mild headache. She denies any back pain. The patient states that she has seizure-like staring episodes in past and was on a medicine which was stopped after her Electroencephalogram (EEG) was normal. She also states that she had strokes a couple of times, but all of her tests come back normal. She was admitted at [facility] twice and was transferred to [facility] once. In one of these episodes, she is received intravenous thrombolysis/TPA. She denies any falls, loss of consciousness, dysphagia, dysarthria, diplopia or urinary incontinence. PAST MEDICAL HISTORY: 1. Transient ischemic attacks. 2. Small cerebral aneurysm. 3. Iron-deficiency anemia. 4. Fatty liver disease. 5. Gastric ulcer. 6. Acid reflux. 7. Hypotension. REVIEW OF SYSTEMS: All systems were reviewed and thought to be noncontributory except as mentioned in the history present illness. SOCIAL HISTORY: She denies smoking, alcohol or illicit drugs. FAMILY HISTORY: Noncontributory. HOME MEDICATIONS: - Plavix 75 mg by mouth daily - Lipitor 20 mg by mouth daily - chlorthalidone 12.5 mg by mouth daily - vitamin B12 - gabapentin 1 mg by mouth three times a day - lisinopril 20 mg by mouth daily - vitamin D and multivitamin. ALLERGIES: ALBUTEROL, ATROVENT. PHYSICAL EXAMINATION: Temperature 98.1, pulse 70, respiratory 23, blood pressure 177/98, 98% saturation on room air. Heart: Regular rate and rhythm. Lungs: Clear to auscultation. Abdomen: Soft, nontender, nondistended. No pedal edema. No musculoskeletal abnormalities. No rash. No signs of meningeal irritation. The patient is awake, alert, oriented to place, person and time. Normal speech, comprehension and repetition. Extraocular muscles are intact. No facial weakness. Tongue and uvula are midline. 5/5 strength in all extremities. Deep tendon flexes 2+ throughout. Normal sensation. Gait is normal. She is able to do tandem walking without difficulty. DIAGNOSTIC STUDIES: Magnetic Resonance Imaging (MRI) and Magnetic Resonance Angiography (MRA) of brain were reportedly unremarkable. Carotid ultrasound was unremarkable. There was no carotid artery stenosis on either side. ASSESSMENT: 1. Benign positional vertigo. 2. History of transient ischemic attack (TIA). 3. History of small cerebral aneurysm. PLAN: 1. Vestibular rehabilitation exercises. 2. Meclizine 12.5 or 25 mg by mouth twice a day as needed. 3. Continue Plavix 75 mg by mouth daily and Lipitor 20 mg by mouth daily. 4. She is scheduled to see Dr. Villegas at our office next week.
[2018-11-25 04:00] VITALS: BP 96/59
[2018-11-25 05:35] LABS: HEMATOCRIT 39.3 % (36.0-47.0); MEAN CORPUSCULAR HEMOGLOBIN 29.7 pg (27.0-33.0); MEAN CORPUSCULAR HGB CONC 33.1 g/dl (32.0-36.5); MEAN CORPUSCULAR VOLUME 89.9 fl (80.0-96.0); PLATELET COUNT, AUTOMATED 172 10^3/uL (150-450); RED BLOOD COUNT 4.37 10^6/uL (4.00-5.40); WHITE BLOOD COUNT 9.4 10^3/uL (4.0-10.0)
[2018-11-25 05:40] VITALS: BP 132/84
[2018-11-25 05:56] LABS: BLOOD UREA NITROGEN 14 MG/DL (7-18); CALCIUM LEVEL 9.1 MG/DL (8.5-10.1); CARBON DIOXIDE LEVEL 31 MEQ/L (21-32); CHLORIDE LEVEL 103 MEQ/L (98-107); CREATININE FOR GFR 0.69 MG/DL (0.55-1.30); GLOMERULAR FILTRATION RATE > 60.0 (>51); GLUCOSE, FASTING 106 MG/DL (70-100); POTASSIUM SERUM 3.4 MEQ/L (3.5-5.1); SODIUM LEVEL 139 MEQ/L (136-145)
[2018-11-25 08:00] VITALS: BP 120/73
[2018-11-25] MEDS ORDERED: POTASSIUM CHLORIDE 10 MEQ SR TABLET PO SCH (09:00)
[2018-11-25] MEDS: ENOXAPARIN 40 MG/0.4 ML SYRINGE (J1650) SC SCH (09:00)
[2018-11-25] MEDS ORDERED: KLOR10TA76 PO (09:25)
[2018-11-25] MEDS: CYANOCOBALAMIN 500 MCG TAB PO SCH (09:41)
[2018-11-25] MEDS: GABAPENTIN 100 MG CAP PO SCH (09:41)
[2018-11-25] MEDS: MULTIVITAMINS/MINERALS THERAP 1 TAB PO SCH (09:41)
[2018-11-25] MEDS: CHLORTHALIDONE 12.5MG PER 1/2 TABLET PO SCH (09:41)
[2018-11-25] MEDS: ATORVASTATIN 20 MG TAB PO SCH (09:41)
[2018-11-25] MEDS: CLOPIDOGREL 75 MG TAB PO SCH (09:41)
[2018-11-25] MEDS: VITAMIN D 1,000 INTERNATIONAL UNITS TABLET PO SCH (09:41)
[2018-11-25 09:52] LABS: COLLAGEN EPINEPHRINE 103 SECONDS (74-162)
[2018-11-25] MEDS ORDERED: POTASSIUM CHLORIDE 10 MEQ SR TABLET PO ONE (10:00)
--- NOTE | 2018-11-26 06:30 | DSES ---
DATE OF ADMISSION: 11/23/2018 DATE OF DISCHARGE: 11/25/2018 REASON FOR ADMISSION: Julissa is a 58-year-old is admitted with complaint of vertigo, she had no headache. She is mildly queasy but no emesis. She has a history of similar symptoms in the past. She has been treated as a stroke in the past and received TPA. Electroencephalogram (EEG) was done within the past month and was negative. PAST MEDICAL HISTORY: 1. She has past history of having a small brain aneurysm. 2. History of cerebral vascular accident (CVA) in 2014, 2016 and July 2017. 3. History of gastric ulcer and gastroesophageal reflux disease (GERD). . MEDICATIONS ON ADMISSION: - lisinopril 20 - chlorthalidone 12.5 mg daily. IMAGING: Neuro imaging MRA and MRI showed no abnormalities. The patient was admitted, provided with deep venous thrombosis (DVT) prophylaxis mechanical and seen in consultation by Dr. Virk. On the discharge her symptoms are improved. She is less vertiginous, she is walking without assistance and able to demonstrate normal Romberg. ASSESSMENT: 1. Vertigo improved at the time of discharge. 2. History of small vascular brain aneurysm but not found on MRA conducted as a part of this admission. 3. Carotid ultrasound showed no significant stenosis. 4. Minimal bilateral atherosclerotic plaque was seen. Activity at the time of discharge will be as tolerated. She has followup in place with Dr. Virk this coming . Suggest she contact her primary care provider for followup within two weeks. Pending at time of discharge is a test for platelet function assay. If this test is equivocal consider testing for HIM1T62 since slow metabolism with a defect in this gene can result in ineffectiveness of the clopidogrel. If she in fact a slow metabolizer consider switch to Brilinta or a similar product that is not a pro drug and not dependent on [id number] pathway to activate the drug. If her platelet function assay is abnormal as expected, then it would be an indication that the Plavix is working as it should and a genetic testing may not be necessary. DISCHARGE DIAGNOSIS: 1. Vertigo. 2. History of previous a transient neurologic disturbances interpreted as strokes but normal findings on MRI and MRA of her brain and normal carotid ultrasound. 3. Hypercholesterolemia. 4. Hypertension. cc: Real Sorensen MD, [facility]
== END 2018-11-25 10:37 | disposition home or self-care (01) | DRG 149 ==
LOC: M ED 15:11 → EDBD 15:11 → EDSEX 15:11 → M ED INP 17:36 → M PCU 11-24 20:18
PROVIDERS: ADMIT Internal Medicine; ATTEND Family Medicine
DX: H81.10 Benign paroxysmal vertigo, unspecified ear (principal); E78.00 Pure hypercholesterolemia, unspecified; I10 Essential (primary) hypertension; Z86.73 Personal history of transient ischemic attack (TIA), and cerebral infarction without residual deficits; K21.9 Gastro-esophageal reflux disease without esophagitis; D50.9 Iron deficiency anemia, unspecified; Z79.899 Other long term (current) drug therapy; Z88.8 Allergy status to other drugs, medicaments and biological substances; E87.6 Hypokalemia; R42 Dizziness and giddiness

== ENCOUNTER → 2018-12-20 | Outpatient (CLI) | payer OTHER ==
[~2018-12-20] MED LIST changes: +CENT1TAB PO; +CHLO25TA PO; +KLOR10TA76 PO; +LISI-538 PO; +PLAV1TAB2 PO; +VITA100018 PO; +VITAD1000T PO
[2018-12-20 11:45] LABS: COLLAGEN EPINEPHRINE 169 SECONDS (74-162)
[2018-12-20 11:54] LABS: COLLAGEN ADP 117 SECONDS (56-103)
[2018-12-20 11:56] LABS: BLOOD UREA NITROGEN 12 MG/DL (7-18); CALCIUM LEVEL 9.1 MG/DL (8.5-10.1); CARBON DIOXIDE LEVEL 30 MEQ/L (21-32); CHLORIDE LEVEL 105 MEQ/L (98-107); CREATININE FOR GFR 0.73 MG/DL (0.55-1.30); GLOMERULAR FILTRATION RATE > 60.0 (>51); GLUCOSE, FASTING 85 MG/DL (70-100); POTASSIUM SERUM 3.7 MEQ/L (3.5-5.1); SODIUM LEVEL 141 MEQ/L (136-145)
== END ==
LOC: M LAB 10:55
PROVIDERS: ATTEND Family Medicine
DX: E87.6 Hypokalemia (principal); G45.9 Transient cerebral ischemic attack, unspecified

== ENCOUNTER 2019-04-05 21:40 | Emergency (ER) | payer OTHER ==
[~2019-04-05] VITALS: Ht 157.5 cm; Wt 86.4 kg
[~2019-04-05 21:40] MED LIST changes: +CHOL100029 PO; -OMEP40CA2 PO; +OMEP40CA97 PO; -VITAD1000T PO
--- NOTE | 2019-04-05 22:12 | REPVR ---
PROCEDURE INFORMATION: Exam: CT Head Without Contrast Exam date and time: 04/05/2019 9:58 PM Age: 58 years old Clinical history: Dizziness TECHNIQUE: Imaging protocol: Computed tomography of the head without contrast. Radiation optimization: All CT scans at this facility use at least one of these dose optimization techniques: automated exposure control; mA and/or kV adjustment per patient size (includes targeted exams where dose is matched to clinical indication); or iterative reconstruction. Other technique: STROKE PROTOCOL was implemented. COMPARISON: MI CT Head without contrast 11/23/2018 3:20 PM FINDINGS: Brain: There is no evidence of infarct, ball-white matter differentiation is preserved. There is no hemorrhage or extra-axial collection. There is no mass. Ventricles: Ventricular prominence is slightly disproportionate to prominence of the sulci. This may be secondary to volume loss. Ventricular size is stable compared with prior scan.. Bones/joints: Unremarkable. No acute fracture. Sinuses: Visualized sinuses are unremarkable. No fluid levels. Mastoid air cells: Visualized mastoid air cells are well aerated. Soft tissues: Unremarkable. IMPRESSION: 1. No intracranial lesion or injury. No change from prior scan. 2. Ventricular size is mildly disproportionate to the prominence of sulci. Recommend clinical correlation for possibility of normal pressure hydrocephalus. Ventricular size is stable compared with prior scan. ASSESSMENT: ASPECTS ([place] Stroke Program Early CT Score 10 Electronically signed by: Jesu Granados On 04/05/2019 22:12:15 PM
[2019-04-05] MEDS ORDERED: VITA500T41 PO (22:14)
[2019-04-05] MEDS ORDERED: BRIL1TAB PO (22:14)
[2019-04-05] MEDS ORDERED: D 50CAP PO (22:14)
[2019-04-05 22:21] LABS: BASO % 0.5 % (0.0-1.0); EOS # 0.3 10^3/uL (0.0-0.5); EOS % 3.8 % (0.0-3.0); HEMATOCRIT 39.3 % (36.0-47.0); HEMOGLOBIN 12.7 g/dl (12.0-15.5); LYMPH # 1.7 10^3/uL (1.5-5.0); LYMPH % 21.4 % (24.0-44.0); MEAN CORPUSCULAR HEMOGLOBIN 29.7 pg (27.0-33.0); MEAN CORPUSCULAR HGB CONC 32.3 g/dl (32.0-36.5); MONO # 0.6 10^3/uL (0.0-0.8); MONO % 8.1 % (0.0-5.0); NEUTROPHILS # 5.2 10^3/uL (1.5-8.5); NEUTROPHILS % 65.7 % (36.0-66.0); PLATELET COUNT, AUTOMATED 211 10^3/uL (150-450); RED BLOOD COUNT 4.27 10^6/uL (4.00-5.40)
[2019-04-05 22:37] LABS: INR 1.04; PARTIAL THROMBOPLASTIN TIME 26.3 SECONDS (25.0-38.4); PROTHROMBIN TIME 13.4 SECONDS (11.8-14.0)
[2019-04-05 22:43] LABS: ALBUMIN 3.9 GM/DL (3.2-5.2); ALT/SGPT 40 U/L (12-78); BILIRUBIN,TOTAL 0.2 MG/DL (0.2-1.0); BLOOD UREA NITROGEN 14 MG/DL (7-18); CARBON DIOXIDE LEVEL 29 MEQ/L (21-32); CHLORIDE LEVEL 105 MEQ/L (98-107); CREATININE FOR GFR 0.73 MG/DL (0.55-1.30); GLOMERULAR FILTRATION RATE > 60.0 (>51); GLUCOSE, FASTING 146 MG/DL (70-100); POTASSIUM SERUM 3.4 MEQ/L (3.5-5.1); SODIUM LEVEL 141 MEQ/L (136-145); TOTAL PROTEIN 7.5 GM/DL (6.4-8.2)
[2019-04-05 23:05] LABS: LIPASE 106 U/L (73-393)
[2019-04-05] MEDS ORDERED: ISOVUE-370 76% 100ML VIAL (Q9967) As Ordered ONE (23:13)
--- NOTE | 2019-04-06 00:11 | REPVR ---
PROCEDURE INFORMATION: Exam: CT Abdomen And Pelvis With Contrast Exam date and time: 04/05/2019 11:35 PM Age: 58 years old Clinical history: Abdominal pain; Localized; Right lower quadrant (rlq); Additional info: Rlq pain TECHNIQUE: Imaging protocol: Computed tomography of the abdomen and pelvis with intravenous contrast. Radiation optimization: All CT scans at this facility use at least one of these dose optimization techniques: automated exposure control; mA and/or kV adjustment per patient size (includes targeted exams where dose is matched to clinical indication); or iterative reconstruction. Contrast material: ISOVUE 370; Contrast volume: 100 ml; Contrast route: IV; COMPARISON: CT ABD PELVIS W/O CONTRAST 12/22/2015 5:23 PM FINDINGS: Liver: There is diffuse fatty infiltration of the liver. No focal lesion. Gallbladder and bile ducts: Status post cholecystectomy. Bile ducts are not dilated. Pancreas: The pancreas is normal. Spleen: The spleen is normal. Adrenals: There is a 2.4 cm hypodense left adrenal nodule. This is stable in comparison with prior scan consistent with benign adenoma. There is a 1.2 cm fat containing a right adrenal nodule consistent with a benign adrenal myelolipoma stable compared with prior scan. Kidneys and ureters: The kidneys are normal. No hydronephrosis. Stomach and bowel: There are extensive sigmoid diverticula. No associated wall thickening or inflammation. Appendix: The appendix is normal. Intraperitoneal space: There is no free fluid or fluid collection. There is no free air. Vasculature: Unremarkable. No abdominal aortic aneurysm. Lymph nodes: Unremarkable. No enlarged lymph nodes. Bladder: The bladder is normal with no evidence of calculi. Reproductive: Unremarkable as visualized. Bones/joints: Unremarkable. No acute fracture. Soft tissues: Unremarkable. IMPRESSION: 1. Extensive diverticulosis. No acute inflammatory findings. 2. Stable bilateral benign adrenal nodules. 3. Hepatic steatosis. Electronically signed by: Jesu Granados On 04/06/2019 00:11:36 AM
[2019-04-06 01:15] VITALS: BP 117/62
--- NOTE | 2019-04-06 10:22 | ED PDOC ---
Post-Departure Follow-Up julia brooks faxed formal report of ct head forfu Padilla Sullivan MD Apr 06, 2019 10:22
== END 2019-04-06 01:32 | disposition home or self-care (01) ==
LOC: M ED 21:40
DX: Z71.1 Person with feared health complaint in whom no diagnosis is made (principal); K57.30 Diverticulosis of large intestine without perforation or abscess without bleeding; D35.00 Benign neoplasm of unspecified adrenal gland; K76.0 Fatty (change of) liver, not elsewhere classified; I10 Essential (primary) hypertension; E78.5 Hyperlipidemia, unspecified; R42 Dizziness and giddiness; K21.9 Gastro-esophageal reflux disease without esophagitis; I67.1 Cerebral aneurysm, nonruptured; Z88.9 Allergy status to unspecified drugs, medicaments and biological substances; Z79.02 Long term (current) use of antithrombotics/antiplatelets; Z79.84 Long term (current) use of oral hypoglycemic drugs; Z79.899 Other long term (current) drug therapy
CPT/HCPCS: 36415; 70450; 74177; 80053; 81001; 83690; 85025; 85610; 85730; 99284; Q9967

== ENCOUNTER 2019-09-10 12:39 | Emergency (ER) | payer OTHER ==
[~2019-09-10] VITALS: Ht 157.5 cm; Wt 94.9 kg
[~2019-09-10 12:39] MED LIST changes: +BRIL1TAB PO; +D 50CAP PO; +VITA500T41 PO
[2019-09-10 13:15] VITALS: BP 139/84
[2019-09-10] MEDS ORDERED: GI COCKTAIL 50ML BTL(HYOSCYAMINE/MAALOX/LIDOCAINE VISCOUS)(1:3:1) PO ONE (13:15)
[2019-09-10] MEDS ORDERED: NITROGLYCERIN 0.4 MG SUBL TABLET SL PRN (13:15)
[2019-09-10 13:46] LABS: INR 0.97; PROTHROMBIN TIME 12.5 SECONDS (11.8-14.0)
[2019-09-10 14:26] LABS: BASO # 0.1 10^3/uL (0.0-0.2); BASO % 0.8 % (0.0-1.0); EOS # 0.3 10^3/uL (0.0-0.5); EOS % 4.6 % (0.0-3.0); HEMATOCRIT 40.2 % (36.0-47.0); HEMOGLOBIN 13.3 g/dl (12.0-15.5); LYMPH # 1.9 10^3/uL (1.5-5.0); LYMPH % 31.5 % (24.0-44.0); MEAN CORPUSCULAR HEMOGLOBIN 29.2 pg (27.0-33.0); MEAN CORPUSCULAR HGB CONC 33.1 g/dl (32.0-36.5); MEAN CORPUSCULAR VOLUME 88.4 fl (80.0-96.0); MONO # 0.6 10^3/uL (0.0-0.8); MONO % 9.5 % (0.0-5.0); NEUTROPHILS # 3.3 10^3/uL (1.5-8.5); NEUTROPHILS % 53.1 % (36.0-66.0); PLATELET COUNT, AUTOMATED 222 10^3/uL (150-450); RED BLOOD COUNT 4.55 10^6/uL (4.00-5.40); WHITE BLOOD COUNT 6.1 10^3/uL (4.0-10.0)
[2019-09-10 14:44] LABS: ERYTHROCYTE SEDIMENTATION RATE 20 mm/hr (0-30)
[2019-09-10 14:47] LABS: ALBUMIN 4.2 GM/DL (3.2-5.2); ALT/SGPT 65 U/L (12-78); BILIRUBIN,DIRECT 0.2 MG/DL (0.0-0.2); BILIRUBIN,TOTAL 0.4 MG/DL (0.2-1.0); BLOOD UREA NITROGEN 11 MG/DL (7-18); C REACTIVE PROTEIN QUANTITATIV 0.79 MG/DL (0.00-0.30); CALCIUM LEVEL 9.9 MG/DL (8.5-10.1); CARBON DIOXIDE LEVEL 28 MEQ/L (21-32); CHLORIDE LEVEL 104 MEQ/L (98-107); CK-MB VALUE MASS 1.8 NG/ML (<3.6); CPK CREATINE PHOSPHOKINASE 68 U/L (26-192); CREATININE FOR GFR 0.74 MG/DL (0.55-1.30); GLOMERULAR FILTRATION RATE > 60.0 (>51); GLUCOSE, FASTING 93 MG/DL (70-100); LIPASE 85 U/L (73-393); MAGNESIUM LEVEL 2.1 MG/DL (1.8-2.4); MB/CK RELATIVE INDEX 2.65 (< OR =4); NT-PRO BNP 8 PG/ML (<125); POTASSIUM SERUM 3.5 MEQ/L (3.5-5.1); SODIUM LEVEL 140 MEQ/L (136-145); TOTAL PROTEIN 7.8 GM/DL (6.4-8.2); TROPONIN I < 0.02 NG/ML (< 0.10)
--- NOTE | 2019-09-10 15:15 | REP ---
CHEST, SINGLE VIEW: COMPARISON: 11/23/2018 Once again, there is mild cardiomegaly. There is no acute infiltrate, both lungs are clear. Mediastinal silhouette is unchanged. IMPRESSION: Mild cardiomegaly. No acute pulmonary disease. Electronically Signed by Stephen Eldridge MD 09/10/2019 03:24 P
[2019-09-10 16:00] VITALS: BP 147/87
--- NOTE | 2019-09-11 16:36 | ECGEPIP ---
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
== END 2019-09-10 16:35 | disposition home or self-care (01) ==
LOC: M ED 12:39
DX: R07.89 Other chest pain (principal); I10 Essential (primary) hypertension; K21.9 Gastro-esophageal reflux disease without esophagitis; Z86.73 Personal history of transient ischemic attack (TIA), and cerebral infarction without residual deficits; Z79.01 Long term (current) use of anticoagulants; Z88.8 Allergy status to other drugs, medicaments and biological substances

== ENCOUNTER 2020-05-19 12:01 | Emergency (ER) | payer OTHER ==
[~2020-05-19] VITALS: Ht 157.5 cm; Wt 87.8 kg
[2020-05-19 12:15] VITALS: BP 170/88
--- NOTE | 2020-05-19 13:21 | REP ---
INDICATION: CHEST PAIN. COMPARISON: Comparison chest x-ray September 10, 2019. TECHNIQUE: Portable upright AP chest radiograph. FINDINGS: The lungs are well inflated and free of infiltrate. Pleural angles are sharp. Heart size is borderline.. Pulmonary vasculature is not increased. A loop recorder is seen projecting in the left precordial region. There are surgical clips in the left upper quadrant of the abdomen. IMPRESSION: Borderline heart size with loop recorder. Otherwise no acute disease.. <Electronically signed by Kaushik Nguyen > 05/19/20 [id number]
[2020-05-19 13:29] LABS: BASO # 0.1 10^3/uL (0.0-0.2); BASO % 0.9 % (0.0-1.0); EOS # 0.4 10^3/uL (0.0-0.5); EOS % 6.7 % (0.0-3.0); HEMATOCRIT 38.4 % (36.0-47.0); HEMOGLOBIN 12.4 g/dl (12.0-15.5); LYMPH # 1.8 10^3/uL (1.5-5.0); LYMPH % 31.2 % (24.0-44.0); MEAN CORPUSCULAR HEMOGLOBIN 29.5 pg (27.0-33.0); MEAN CORPUSCULAR HGB CONC 32.3 g/dl (32.0-36.5); MEAN CORPUSCULAR VOLUME 91.2 fl (80.0-96.0); MONO # 0.5 10^3/uL (0.0-0.8); NEUTROPHILS % 52.5 % (36.0-66.0); PLATELET COUNT, AUTOMATED 191 10^3/uL (150-450); RED BLOOD COUNT 4.21 10^6/uL (4.00-5.40); WHITE BLOOD COUNT 5.6 10^3/uL (4.0-10.0)
[2020-05-19 13:39] LABS: INR 0.94; PROTHROMBIN TIME 12.8 SECONDS (12.5-14.3)
[2020-05-19 13:40] LABS: PARTIAL THROMBOPLASTIN TIME 26.8 SECONDS (24.2-38.5)
[2020-05-19 14:05] LABS: ALBUMIN 4.1 GM/DL (3.2-5.2); ALT/SGPT 47 U/L (12-78); BILIRUBIN,DIRECT 0.1 MG/DL (0.0-0.2); BILIRUBIN,TOTAL 0.3 MG/DL (0.2-1.0); BLOOD UREA NITROGEN 12 MG/DL (7-18); CALCIUM LEVEL 9.3 MG/DL (8.5-10.1); CARBON DIOXIDE LEVEL 28 MEQ/L (21-32); CHLORIDE LEVEL 108 MEQ/L (98-107); CK-MB VALUE MASS 1.7 NG/ML (<3.6); CPK CREATINE PHOSPHOKINASE 76 U/L (26-192); CREATININE FOR GFR 0.72 MG/DL (0.55-1.30); GLOMERULAR FILTRATION RATE > 60.0 (>51); GLUCOSE, FASTING 91 MG/DL (70-100); LIPASE 76 U/L (73-393); MB/CK RELATIVE INDEX 2.24 (< OR =4); NT-PRO BNP 73 PG/ML (<125); POTASSIUM SERUM 3.6 MEQ/L (3.5-5.1); SODIUM LEVEL 142 MEQ/L (136-145); TOTAL PROTEIN 7.3 GM/DL (6.4-8.2); TROPONIN I < 0.02 NG/ML (< 0.10)
--- NOTE | 2020-05-19 17:41 | ECGEPIP ---
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
== END 2020-05-19 15:22 | disposition home or self-care (01) ==
LOC: M ED 12:01
DX: J06.9 Acute upper respiratory infection, unspecified (principal); B34.9 Viral infection, unspecified; R00.1 Bradycardia, unspecified; I10 Essential (primary) hypertension; E78.5 Hyperlipidemia, unspecified; Z86.73 Personal history of transient ischemic attack (TIA), and cerebral infarction without residual deficits; Z95.818 Presence of other cardiac implants and grafts; Z79.01 Long term (current) use of anticoagulants; Z88.8 Allergy status to other drugs, medicaments and biological substances

== ENCOUNTER 2020-07-30 09:54 | Emergency (ER) | payer OTHER ==
[~2020-07-30] VITALS: Ht 157.5 cm; Wt 86.8 kg
[~2020-07-30 09:54] MED LIST changes: +ASPI-569 PO; -ASPI81TAEC PO; +HYDR-3490 PO; -HYDR25TAB PO; -LISI-538 PO; -LISI-542; +LISI-898; +LISI10TA22; -LISI10TA4; +LISI20TA33 PO; -LISI40TA PO; +LISI40TA4 PO
[2020-07-30 09:55] VITALS: BP 160/85
--- NOTE | 2020-07-30 10:20 | REP ---
INDICATION: head injury on wilmata COMPARISON: 04/05/2019 TECHNIQUE: Axial noncontrast images from the skull base to the vertex with coronal reformations. This CT examination was performed using the following dose reduction techniques: Automated exposure control, adjustment of mA and/or kv according to the patient's size, and use of iterative reconstruction technique. FINDINGS: The ventricles, sulci, and cisterns are normal in position and appearance. Eldridge-white differentiation is maintained. No acute intracranial hemorrhage, mass/mass effect, pathology or trauma/injury. No evidence for acute infarction. No extra-axial fluid collection. Calvarium is intact. Paranasal sinuses and mastoid air cells are clear. IMPRESSION: Normal noncontrast head CT. No evidence for acute intracranial pathology or trauma/injury. <Electronically signed by Omar Brar > 07/30/20 [id number]
== END 2020-07-30 11:05 | disposition home or self-care (01) ==
LOC: M ED 09:54
DX: S00.03XA Contusion of scalp, initial encounter (principal); W07.XXXA Fall from chair, initial encounter; Y92.9 Unspecified place or not applicable; Y93.9 Activity, unspecified; Y99.9 Unspecified external cause status; Z88.8 Allergy status to other drugs, medicaments and biological substances; Z79.899 Other long term (current) drug therapy

== ENCOUNTER → 2020-08-26 | Outpatient (CLI) | payer OTHER | LOC: M LABSMTC 12:56 | PROVIDERS: ATTEND Anesthesiology | DX: Z01.812 Encounter for preprocedural laboratory examination (principal); Z20.822 Contact with and (suspected) exposure to COVID-19 ==

== ENCOUNTER 2020-08-31 07:49 | Day surgery (SDC) | payer OTHER ==
[~2020-08-31] VITALS: Ht 157.5 cm; Wt 88.5 kg
[~2020-08-31 07:49] MED LIST changes: +NS 1,000 ML IV ONE
--- NOTE | 2020-08-31 09:36 | ROOR ---
Patient Name: Julissa Augustine Procedure Date: 08/31/2020 9:15 AM Date of : 1960 Age: 59 Room: [facility] Gender: Female Note Status: Finalized Procedure: Total Colonoscopy to Cecum Indications: Screening for colorectal malignant neoplasm Providers: River Reese MD Referring MD: Narda Rosa NP Requesting Provider: Medicines: Monitored Anesthesia Care Complications: No immediate complications. Procedure: Pre-Anesthesia Assessment: - The heart rate, respiratory rate, oxygen saturations, blood pressure, adequacy of pulmonary ventilation, and response to care were monitored throughout the procedure. The Colonoscope was introduced through the anus and advanced to the cecum, identified by appendiceal orifice and ileocecal valve. The colonoscopy was performed without difficulty. The patient tolerated the procedure well. The quality of the bowel preparation was excellent. Findings: The perianal and digital rectal examinations were normal. Non-bleeding internal hemorrhoids were found during retroflexion. The hemorrhoids were small and Grade I (internal hemorrhoids that do not prolapse). Multiple small and large-mouthed diverticula were found in the recto-sigmoid colon, sigmoid colon and descending colon. The exam was otherwise without abnormality on direct and retroflexion views. Impression: - Non-bleeding internal hemorrhoids. - Diverticulosis in the recto-sigmoid colon, in the sigmoid colon and in the descending colon. - The examination was otherwise normal on direct and retroflexion views. - No specimens collected. - The exam was otherwise normal to the cecum. Recommendation: - Patient has a contact number available for emergencies. The signs and symptoms of potential delayed complications were discussed with the patient. Return to normal activities tomorrow. Written discharge instructions were provided to the patient. - High fiber diet. - Discharge patient to home. - Continue present medications. - Repeat colonoscopy in 10 years for screening purposes. - Return to referring physician. - The findings and recommendations were discussed with the patient. Procedure Code(s): --- Professional --- 22019, Colonoscopy, flexible; diagnostic, including collection of specimen(s) by brushing or washing, when performed (separate procedure) Diagnosis Code(s): --- Professional --- Z12.11, Encounter for screening for malignant neoplasm of colon K64.0, First degree hemorrhoids K57.30, Diverticulosis of large intestine without perforation or abscess without bleeding CPT copyright 2019 [employer]. All rights reserved. The codes documented in this report are preliminary and upon health information coder review may be revised to meet current compliance requirements. River Reese MD River Reese MD 08/31/2020 9:36:08 AM Electronically signed by River Reese MD Number of Addenda: 0 Note Initiated On: 08/31/2020 9:15 AM Estimated Blood Loss: Estimated blood loss: none.
[2020-08-31 09:55] VITALS: BP 128/83
== END 2020-08-31 10:44 | disposition home or self-care (01) ==
LOC: M OPP 07:49
PROVIDERS: ATTEND Internal Medicine Gastroenterology
DX: Z12.11 Encounter for screening for malignant neoplasm of colon (principal); K57.30 Diverticulosis of large intestine without perforation or abscess without bleeding; K64.0 First degree hemorrhoids; Z79.899 Other long term (current) drug therapy; Z88.8 Allergy status to other drugs, medicaments and biological substances; Z86.79 Personal history of other diseases of the circulatory system; Z86.73 Personal history of transient ischemic attack (TIA), and cerebral infarction without residual deficits

== ENCOUNTER 2020-11-20 11:13 | Emergency (ER) | payer OTHER ==
[~2020-11-20] VITALS: Ht 157.5 cm; Wt 90.0 kg
[~2020-11-20 11:13] MED LIST changes: -NS 1,000 ML IV ONE; +OMEP40CA4 PO; -OMEP40CA97 PO
--- NOTE | 2020-11-20 12:09 | REP ---
INDICATION: dizzy. COMPARISON: Comparison head CT study arch [id number] and November 23, 2018.. TECHNIQUE: Helical scanning is acquired. 5 mm axial images were reformatted. Coronal MPR images were generated. FINDINGS: Bone window settings demonstrate an intact bony calvarium. There is no evidence of skull fracture or incidental bony calvarial lesion. The visualized paranasal sinuses appear clear. No intraorbital abnormality is seen. On soft tissue window setting images; the lateral, third, and fourth ventricles are normal in size and position. Eldridge-white differentiation pattern is normal above and below the tentorium. There are is no evidence of intracranial hemorrhage. No mass, edema, infarction, or midline shift is seen. No extra-axial fluid collection is appreciated. There is mild generalized volume loss and concordant ventricular enlargement again noted unchanged from the November 23, 2018 prior study. IMPRESSION: Mild generalized volume loss and concordant ventricular enlargement again noted unchanged. No acute intracranial abnormality.. <Electronically signed by Kaushik Nguyen > 11/20/20 [id number]
--- NOTE | 2020-11-20 13:06 | REP ---
INDICATION: chest pain COMPARISON: 05/19/2020 TECHNIQUE: Portable AP view of the chest FINDINGS: The mediastinum and cardiac silhouette are stable and within normal limits for portable technique. The lung luciano are clear without acute consolidation, effusion, or pneumothorax. Skeletal structures are intact. IMPRESSION: No acute cardiopulmonary process appreciated. <Electronically signed by Omar Brar > 11/20/20 [id number]
[2020-11-20 13:49] LABS: BASO # 0.1 10^3/uL (0.0-0.2); BASO % 0.8 % (0.0-1.0); EOS # 0.5 10^3/uL (0.0-0.5); HEMATOCRIT 40.2 % (36.0-47.0); HEMOGLOBIN 13.2 g/dl (12.0-15.5); LYMPH # 2.1 10^3/uL (1.5-5.0); LYMPH % 27.6 % (24.0-44.0); MEAN CORPUSCULAR HEMOGLOBIN 29.5 pg (27.0-33.0); MEAN CORPUSCULAR HGB CONC 32.8 g/dl (32.0-36.5); MEAN CORPUSCULAR VOLUME 89.9 fl (80.0-96.0); MONO # 0.7 10^3/uL (0.0-0.8); MONO % 9.2 % (2.0-8.0); NEUTROPHILS # 4.3 10^3/uL (1.5-8.5); NEUTROPHILS % 55.8 % (36.0-66.0); PLATELET COUNT, AUTOMATED 211 10^3/uL (150-450); RED BLOOD COUNT 4.47 10^6/uL (4.00-5.40); WHITE BLOOD COUNT 7.7 10^3/uL (4.0-10.0)
[2020-11-20 14:20] LABS: BLOOD UREA NITROGEN 12 MG/DL (7-18); CALCIUM LEVEL 10.1 MG/DL (8.5-10.1); CARBON DIOXIDE LEVEL 27 MEQ/L (21-32); CHLORIDE LEVEL 107 MEQ/L (98-107); CK-MB VALUE MASS < 1.0 NG/ML (<3.6); CPK CREATINE PHOSPHOKINASE 46 U/L (26-192); CREATININE FOR GFR 0.64 MG/DL (0.55-1.30); GLOMERULAR FILTRATION RATE > 60.0 (>51); GLUCOSE, FASTING 90 MG/DL (70-100); MAGNESIUM LEVEL 2.1 MG/DL (1.8-2.4); MB/CK RELATIVE INDEX 2.17 (< OR =4); POTASSIUM SERUM 3.8 MEQ/L (3.5-5.1); SODIUM LEVEL 142 MEQ/L (136-145); TROPONIN I < 0.02 NG/ML (< 0.10)
--- NOTE | 2020-11-20 17:08 | ECGEPIP ---
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
--- NOTE | 2020-11-20 21:13 | REPVR ---
PROCEDURE INFORMATION: Exam: MRA Head Without Contrast; Arteriography Exam date and time: 11/20/2020 8:31 PM Age: 60 years old Clinical indication: Dizziness and giddiness; Patient HX: Persistent unrelenting dizziness since 9am; HX of stroke, HX of aneurysm; Additional info: Dizziness; HX of stroke TECHNIQUE: Imaging protocol: Magnetic resonance angiography head without contrast. Exam focused on the arteries. COMPARISON: MRA BRAIN W/O CONTRAST 11/23/2018 7:35 PM FINDINGS: ANTERIOR CIRCULATION: Right internal carotid artery: Intracranial segment is patent with no significant stenosis. No aneurysm. Right middle cerebral artery: No occlusion or significant stenosis. No aneurysm. Right anterior cerebral artery: No occlusion or significant stenosis. No aneurysm. Left internal carotid artery: Intracranial segment is patent with no significant stenosis. No aneurysm. Left middle cerebral artery: No occlusion or significant stenosis. No aneurysm. Left anterior cerebral artery: No occlusion or significant stenosis. No aneurysm. POSTERIOR CIRCULATION: Right vertebral artery: No occlusion or significant stenosis. No aneurysm. Left vertebral artery: No occlusion or significant stenosis. No aneurysm. Basilar artery: No occlusion or significant stenosis. No aneurysm. Right posterior cerebral artery: No occlusion or significant stenosis. No aneurysm. Left posterior cerebral artery: No occlusion or significant stenosis. No aneurysm. IMPRESSION: No stenosis or occlusion. Electronically signed by: Brando Upton On 11/20/2020 21:13:34 PM
--- NOTE | 2020-11-20 21:15 | REPVR ---
PROCEDURE INFORMATION: Exam: MRA Neck Without Contrast Exam date and time: 11/20/2020 8:31 PM Age: 60 years old Clinical indication: Dizziness and giddiness; Patient HX: Persistent unrelenting dizziness since 9am; HX of stroke, HX of aneurysm; Additional info: Dizziness; HX of stroke TECHNIQUE: Imaging protocol: Magnetic resonance angiography of the neck without contrast. COMPARISON: MRA CAROTID W/O FOL WITH 09/12/2014 5:35 PM FINDINGS: Right common carotid artery: No stenosis. No dissection or occlusion. Right internal carotid artery: No stenosis of the extracranial segment. No dissection or occlusion. Right external carotid artery: No stenosis. No dissection or occlusion of the origin. Right vertebral artery: No stenosis. No dissection or occlusion. Left common carotid artery: No stenosis. No dissection or occlusion. Left internal carotid artery: No stenosis of the extracranial segment. No dissection or occlusion. Left external carotid artery: No stenosis. No dissection or occlusion of the origin. Left vertebral artery: No stenosis. No dissection or occlusion. IMPRESSION: No stenosis or occlusion. REFERENCES: NASCET CRITERIA. The degree of internal carotid artery stenosis is based on NASCET criteria. Normal is no stenosis. Mild is less than 50% stenosis. Moderate is 50-69% stenosis. Severe is 70% to 99% stenosis. Total occlusion is no detectable patent lumen. Electronically signed by: Brando Upton On 11/20/2020 21:15:37 PM
--- NOTE | 2020-11-20 21:18 | REPVR ---
PROCEDURE INFORMATION: Exam: MR Head Without Contrast Exam date and time: 11/20/2020 8:31 PM Age: 60 years old Clinical indication: Patient HX: Persistent unrelenting dizziness since 9am; HX of stroke, HX of aneurysm; Additional info: Dizziness; HX of stroke TECHNIQUE: Imaging protocol: MR of the head without contrast. COMPARISON: CT Head without contrast 11/20/2020 11:56 AM FINDINGS: Brain: Mild diffuse parenchymal atrophy. No significant white matter disease. Cerebral ventricles: The degree of ventricular dilatation is normal for age and/or degree of atrophy present. Bones/joints: Unremarkable. Paranasal sinuses: Mild bilateral inflammatory changes in the ethmoid sinuses. Mastoid air cells: Normal as visualized. No mastoid effusion. Orbital cavity: Unremarkable. Soft tissues: Unremarkable. IMPRESSION: 1. Mild diffuse parenchymal atrophy. No significant white matter disease. 2. The degree of ventricular dilatation is normal for age and/or degree of atrophy present. 3. No acute intracranial findings. Electronically signed by: Brando Upton On 11/20/2020 21:17:43 PM
[2020-11-20 23:20] VITALS: BP 136/97
== END 2020-11-20 23:30 | disposition home or self-care (01) ==
LOC: M ED 11:13
DX: R42 Dizziness and giddiness (principal); E78.5 Hyperlipidemia, unspecified; I10 Essential (primary) hypertension; Z88.8 Allergy status to other drugs, medicaments and biological substances

== ENCOUNTER → 2021-09-04 | Outpatient (CLI) | payer OTHER ==
[~2021-09-04] MED LIST changes: -KLOR10TA76 PO; -LISI-898; +LISI5TAB11; +POTA-136 PO
== END ==
LOC: M LABSMTC 10:16
PROVIDERS: ATTEND Anesthesiology
DX: Z01.812 Encounter for preprocedural laboratory examination (principal); Z20.822 Contact with and (suspected) exposure to COVID-19

== ENCOUNTER 2021-09-07 14:10 | Day surgery (SDC) | payer OTHER ==
[~2021-09-07] VITALS: Ht 157.5 cm; Wt 99.0 kg
[~2021-09-07 14:10] MED LIST changes: +CALC200T3 PO; +CVS5000S2 SL; +D3 S1CAP PO; +LIDOCAINE 1% MDV 20ML VIAL SQ PRN; +LR 1,000 ML IV ONE; +ceFAZolin SOD 2 GM in IV 1 EA IV ONE
[2021-09-07] MEDS ORDERED: MIDAZOLAM INJ 2MG/2ML VIAL (J2250 PER 1MG) As Ordered ONE (15:49)
[2021-09-07] MEDS ORDERED: propofoL 200 MG/20 ML VIAL As Ordered ONE ×3 (15:49→17:35)
[2021-09-07] MEDS ORDERED: LIDOCAINE 2% 100MG/5ML SDV (FOR ANES.) As Ordered ONE (15:49)
[2021-09-07] MEDS ORDERED: fentaNYL 100 MCG/2 ML INJECTION As Ordered ONE (15:50)
[2021-09-07] MEDS ORDERED: ONDANSETRON 4MG/2ML VIAL As Ordered ONE (15:50)
[2021-09-07] MEDS ORDERED: dexameTHASONE 4 MG/ML 1ML VIAL (J1100 PER 1MG) As Ordered ONE (15:50)
[2021-09-07] MEDS ORDERED: LIDOCAINE 1% MDV 20ML VIAL As Ordered ONE (16:17)
[2021-09-07] MEDS ORDERED: KETOROLAC 60MG 2ML VIAL As Ordered ONE (17:46)
[2021-09-07 18:30] VITALS: BP 133/76
== END 2021-09-07 18:30 | disposition home or self-care (01) ==
LOC: M OPP 14:10
PROVIDERS: ATTEND Internal Medicine Cardiovascular Disease
DX: Z95.818 Presence of other cardiac implants and grafts (principal); I47.1 Supraventricular tachycardia; I10 Essential (primary) hypertension; Z79.899 Other long term (current) drug therapy; Z88.8 Allergy status to other drugs, medicaments and biological substances
CPT/HCPCS: 33286; 76000; J0690; J1100; J1885; J2250; J2405; J3010

== ENCOUNTER → 2021-09-13 | Outpatient (REF) | payer OTHER ==
[~2021-09-13] MED LIST changes: -LIDOCAINE 1% MDV 20ML VIAL SQ PRN; -LR 1,000 ML IV ONE; -ceFAZolin SOD 2 GM in IV 1 EA IV ONE
[2021-09-13 12:12] LABS: ALT/SGPT 78 U/L (12-78); BILIRUBIN,TOTAL 0.4 MG/DL (0.2-1.0); BLOOD UREA NITROGEN 15 MG/DL (7-18); CALCIUM LEVEL 9.9 MG/DL (8.5-10.1); CARBON DIOXIDE LEVEL 28 MEQ/L (21-32); CHLORIDE LEVEL 108 MEQ/L (98-107); CHOLESTEROL LEVEL 128 MG/DL (<200); CREATININE FOR GFR 0.57 MG/DL (0.55-1.30); GLOMERULAR FILTRATION RATE > 60.0 (>51); GLUCOSE, FASTING 139 MG/DL (70-100); HDL CHOLESTEROL 43 MG/DL (>40); POTASSIUM SERUM 3.9 MEQ/L (3.5-5.1); SODIUM LEVEL 143 MEQ/L (136-145); TRIGLYCERIDES LEVEL 132 MG/DL (<150)
[2021-09-13 12:13] LABS: CHOLESTEROL RISK RATIO 2.976 (<5); LDL CHOLESTEROL 59 MG/DL (<100); NON-HDL-C 85 MG/DL; TOTAL PROTEIN 7.2 GM/DL (6.4-8.2)
[2021-09-13 12:19] LABS: TOTAL 25(OH) VITAMIN D 39.2 NG/ML (30.0-100.0)
== END ==
LOC: M SFHCCLAY 09:04
PROVIDERS: ATTEND Nurse Practitioner Family
DX: I11.9 Hypertensive heart disease without heart failure (principal); E78.5 Hyperlipidemia, unspecified; E55.9 Vitamin D deficiency, unspecified; Z79.899 Other long term (current) drug therapy

== ENCOUNTER → 2021-09-14 | Outpatient (REF) | payer OTHER ==
[2021-09-14 16:31] LABS: HEMOGLOBIN A1c 7.2 %
== END ==
LOC: M SFHCCLAY 11:16
PROVIDERS: ATTEND Family Medicine
DX: Z00.00 Encounter for general adult medical examination without abnormal findings (principal); R73.01 Impaired fasting glucose

== ENCOUNTER 2021-12-21 18:31 | Emergency (ER) | payer OTHER ==
[~2021-12-21] VITALS: Ht 160 cm; Wt 96.3 kg
[~2021-12-21 18:31] MED LIST changes: -B-12100020 PO; -CALCTAB89 PO
[2021-12-21 21:20] LABS: BASO # 0.1 10^3/uL (0.0-0.2); BASO % 0.9 % (0.0-1.0); EOS # 0.3 10^3/uL (0.0-0.5); EOS % 4.1 % (0.0-3.0); HEMATOCRIT 42.8 % (36.0-47.0); LYMPH # 2.3 10^3/uL (1.5-5.0); LYMPH % 28.1 % (24.0-44.0); MEAN CORPUSCULAR HEMOGLOBIN 29.1 pg (27.0-33.0); MEAN CORPUSCULAR HGB CONC 32.7 g/dl (32.0-36.5); MONO # 0.6 10^3/uL (0.0-0.8); MONO % 7.8 % (2.0-8.0); NEUTROPHILS # 4.8 10^3/uL (1.5-8.5); NEUTROPHILS % 58.6 % (36.0-66.0); PLATELET COUNT, AUTOMATED 206 10^3/uL (150-450); RED BLOOD COUNT 4.81 10^6/uL (4.00-5.40); WHITE BLOOD COUNT 8.2 10^3/uL (4.0-10.0)
[2021-12-21 22:04] LABS: ALT/SGPT 86 U/L (12-78); BILIRUBIN,DIRECT 0.1 MG/DL (0.0-0.2); BILIRUBIN,TOTAL 0.2 MG/DL (0.2-1.0); BLOOD UREA NITROGEN 20 MG/DL (7-18); CALCIUM LEVEL 9.5 MG/DL (8.8-10.2); CARBON DIOXIDE LEVEL 27 MEQ/L (21-32); CHLORIDE LEVEL 105 MEQ/L (98-107); CREATININE FOR GFR 0.76 MG/DL (0.55-1.30); GLOMERULAR FILTRATION RATE > 60.0 (>45); GLUCOSE, FASTING 106 MG/DL (70-100); LIPASE 121 U/L (73-393); POTASSIUM SERUM 3.6 MEQ/L (3.5-5.1); SODIUM LEVEL 142 MEQ/L (136-145)
[2021-12-21] MEDS ORDERED: NS 1,000 ML IV ONE (23:00)
[2021-12-21] MEDS ORDERED: ONDANSETRON 4MG 2ML VIAL IV ONE (23:00)
[2021-12-21] MEDS ORDERED: KETOROLAC 30 MG/ML 1ML VIAL IV ONE (23:00)
[2021-12-21 23:46] VITALS: BP 142/76
== END 2021-12-22 01:36 | disposition home or self-care (01) ==
LOC: M ED 18:31
DX: K52.9 Noninfective gastroenteritis and colitis, unspecified (principal); I10 Essential (primary) hypertension; R73.03 Prediabetes; Z86.73 Personal history of transient ischemic attack (TIA), and cerebral infarction without residual deficits; Z86.79 Personal history of other diseases of the circulatory system; Z88.9 Allergy status to unspecified drugs, medicaments and biological substances; Z88.8 Allergy status to other drugs, medicaments and biological substances; Z79.811 Long term (current) use of aromatase inhibitors; Z79.899 Other long term (current) drug therapy

== ENCOUNTER → 2021-12-21 | Outpatient (REF) | payer OTHER ==
[~2021-12-21] MED LIST changes: +B-12100020 PO; +CALCTAB89 PO
[2021-12-21 17:21] LABS: HEMATOCRIT 40.7 % (36.0-47.0); HEMOGLOBIN 13.3 g/dl (12.0-15.5); MEAN CORPUSCULAR HEMOGLOBIN 28.5 pg (27.0-33.0); MEAN CORPUSCULAR HGB CONC 32.7 g/dl (32.0-36.5); MEAN CORPUSCULAR VOLUME 87.3 fl (80.0-96.0); PLATELET COUNT, AUTOMATED 205 10^3/uL (150-450); RED BLOOD COUNT 4.66 10^6/uL (4.00-5.40); WHITE BLOOD COUNT 7.4 10^3/uL (4.0-10.0)
[2021-12-21 19:47] LABS: HEMOGLOBIN A1c 7.2 %
[2021-12-21 21:07] LABS: ALT/SGPT 85 U/L (12-78); BILIRUBIN,TOTAL 0.3 MG/DL (0.2-1.0); BLOOD UREA NITROGEN 15 MG/DL (7-18); CALCIUM LEVEL 10.2 MG/DL (8.8-10.2); CARBON DIOXIDE LEVEL 31 MEQ/L (21-32); CHLORIDE LEVEL 102 MEQ/L (98-107); CHOLESTEROL LEVEL 107 MG/DL (<200); CHOLESTEROL RISK RATIO 2.377 (<5); CREATININE FOR GFR 0.73 MG/DL (0.55-1.30); GLOMERULAR FILTRATION RATE > 60.0 (>45); GLUCOSE, FASTING 109 MG/DL (70-100); HDL CHOLESTEROL 45 MG/DL (>40); LDL CHOLESTEROL 37 MG/DL (<100); NON-HDL-C 62 MG/DL; SODIUM LEVEL 140 MEQ/L (136-145); TOTAL PROTEIN 7.6 GM/DL (6.4-8.2); TRIGLYCERIDES LEVEL 127 MG/DL (<150)
[2021-12-21 21:32] LABS: MALB URINE SIEMENS < 5.0 MG/L; MAU/CREAT RATIO 15.1 MCG/MG (0.0-30.0)
== END ==
LOC: M SFHCCLAY 10:20
PROVIDERS: ATTEND Nurse Practitioner Family
DX: R10.11 Right upper quadrant pain (principal); E11.9 Type 2 diabetes mellitus without complications; E78.5 Hyperlipidemia, unspecified
CPT/HCPCS: 80053; 80061; 82043; 83036; 85027; G0463

== ENCOUNTER 2021-12-26 10:16 | Inpatient (IN) | payer OTHER ==
[2021-12-26] VITALS (7 sets, daily range): BP systolic 122–140; BP diastolic 65–83
[~2021-12-26] VITALS: Ht 157.5 cm; Wt 96.4 kg
[2021-12-26] MEDS ORDERED: NS 1,000 ML IV SCH (11:05)
[2021-12-26] MEDS ORDERED: BOOSTRIX/ADACEL VACCINE (DIPHTH/PERTUSS/ACELL/TETANUS) 0.5ML SYR IM.IMMUN ONE (11:05)
[2021-12-26] MEDS ORDERED: ONDANSETRON 4MG 2ML VIAL IV ONE (11:50)
[2021-12-26 12:14] LABS: BASO % 0.5 % (0.0-1.0); EOS # 0.2 10^3/uL (0.0-0.5); EOS % 2.7 % (0.0-3.0); HEMATOCRIT 38.4 % (36.0-47.0); HEMOGLOBIN 12.6 g/dl (12.0-15.5); LYMPH # 1.4 10^3/uL (1.5-5.0); LYMPH % 16.7 % (24.0-44.0); MEAN CORPUSCULAR HEMOGLOBIN 29.2 pg (27.0-33.0); MEAN CORPUSCULAR HGB CONC 32.8 g/dl (32.0-36.5); MEAN CORPUSCULAR VOLUME 88.9 fl (80.0-96.0); MONO # 0.5 10^3/uL (0.0-0.8); MONO % 5.7 % (2.0-8.0); NEUTROPHILS # 6.2 10^3/uL (1.5-8.5); NEUTROPHILS % 73.6 % (36.0-66.0); PLATELET COUNT, AUTOMATED 203 10^3/uL (150-450); RED BLOOD COUNT 4.32 10^6/uL (4.00-5.40); WHITE BLOOD COUNT 8.4 10^3/uL (4.0-10.0)
[2021-12-26] MEDS: MORPHINE 2 MG/ML 1ML VIAL IV PRN ×2 (12:17→16:51)
[2021-12-26] MEDS ORDERED: ISOVUE-370 76% 100ML VIAL As Ordered ONE (12:25)
[2021-12-26 12:29] LABS: INR 1.02; PROTHROMBIN TIME 13.8 SECONDS (12.7-14.5)
[2021-12-26 12:30] LABS: PARTIAL THROMBOPLASTIN TIME 28.8 SECONDS (25.9-37.0)
[2021-12-26 12:46] LABS: ALT/SGPT 85 U/L (12-78); AMYLASE 50 U/L (25-115); BILIRUBIN,DIRECT < 0.1 MG/DL (0.0-0.2); BILIRUBIN,TOTAL 0.3 MG/DL (0.2-1.0); LIPASE 99 U/L (73-393); TOTAL PROTEIN 7.3 GM/DL (6.4-8.2)
[2021-12-26 12:49] LABS: RSV AMPLIFICATION NEGATIVE (NEGATIVE)
[2021-12-26] MEDS ORDERED: CALCTAB89 PO (13:35)
[2021-12-26] MEDS ORDERED: HOME MED LIST COMPLETE! XX SCH (13:35)
[2021-12-26] MEDS ORDERED: B-12100020 PO (13:35)
[2021-12-26] MEDS ORDERED: TRANEXAMIC ACID 100 MG/ML 10ML VIAL As Ordered ONE ×2 (13:55→14:09)
[2021-12-26] MEDS ORDERED: BUPIVACAINE/EPIN 0.5% 30 ML VIAL As Ordered ONE (13:55)
[2021-12-26] MEDS ORDERED: LIDOCAINE 2% MDV 20ML VIAL As Ordered ONE (13:55)
[2021-12-26] MEDS ORDERED: EPINEPHrine INJ 1 MG/ML 1ML AMP As Ordered ONE (13:56)
[2021-12-26] MEDS ORDERED: MIDAZOLAM INJ 2MG/2ML VIAL (J2250 PER 1MG) As Ordered ONE (14:03)
[2021-12-26] MEDS ORDERED: fentaNYL 250 MCG/5 ML INJECTION As Ordered ONE (14:03)
[2021-12-26] MEDS ORDERED: ROCURONIUM BROMIDE 50 MG/5 ML VIAL As Ordered ONE (14:03)
[2021-12-26] MEDS ORDERED: LIDOCAINE 2% 100MG/5ML SDV (FOR ANES.) As Ordered ONE (14:03)
[2021-12-26] MEDS ORDERED: propofoL 200 MG/20 ML VIAL As Ordered ONE (14:04)
[2021-12-26] MEDS ORDERED: SUCCINYLCHOLINE 100 MG/5 ML SYRINGE (J0330) As Ordered ONE (14:37)
[2021-12-26] MEDS ORDERED: PHENYLephrine 500MCG 5ML (100MCG/ML) SYRINGE As Ordered ONE ×2 (14:40→15:30)
[2021-12-26] MEDS ORDERED: ePHEDrine SULFATE 25 MG/5 ML(5MG/ML) SYRINGE As Ordered ONE (14:54)
[2021-12-26] MEDS ORDERED: ceFAZolin 2 GM/D5W 50 ML IV BAG (J0690 PER 500MG) IV ONE (15:11)
[2021-12-26] MEDS ORDERED: SUGAMMADEX SODIUM 500 MG/5 ML VIAL (BRIDION) As Ordered ONE (15:35)
[2021-12-26] MEDS ORDERED: dexameTHASONE 4 MG/ML 1ML VIAL (J1100 PER 1MG) As Ordered ONE (15:37)
[2021-12-26] MEDS ORDERED: ONDANSETRON 4MG 2ML VIAL As Ordered ONE (15:37)
[2021-12-26] MEDS ORDERED: ACETAMINOPHEN 1000MG 100ML IV BTL (OFIRMEV) (J0131 PER 10MG) As Ordered ONE (15:39)
[2021-12-26] MEDS ORDERED: fentaNYL 100 MCG/2 ML INJECTION IV PRN (15:45)
[2021-12-26] MEDS ORDERED: LR 1,000 ML IV SCH (15:45)
[2021-12-26] MEDS ORDERED: MORPHINE 2 MG/ML 1ML VIAL IV PRN ×2 (15:45→18:30)
[2021-12-26] MEDS ORDERED: ONDANSETRON 4MG 2ML VIAL IV PRN ×2 (15:45→18:30)
[2021-12-26] MEDS: oxyCODONE 5MG TAB PO PRN ×2 (16:45→17:18)
[2021-12-26] MEDS ORDERED: ACETAMINOPHEN TAB 650MG DOSE (2X325MG) PO PRN (18:30)
[2021-12-26] MEDS: GABAPENTIN 100 MG CAP PO SCH (21:33)
[2021-12-26] MEDS: LR 1,000 ML IV SCH (21:33)
[2021-12-27 03:00] VITALS: BP 119/65
[2021-12-27 06:35] LABS: BASO % 0.3 % (0.0-1.0); EOS % 0.1 % (0.0-3.0); HEMATOCRIT 28.8 % (36.0-47.0); LYMPH # 1.1 10^3/uL (1.5-5.0); MEAN CORPUSCULAR HGB CONC 31.9 g/dl (32.0-36.5); MEAN CORPUSCULAR VOLUME 90.9 fl (80.0-96.0); MONO # 0.8 10^3/uL (0.0-0.8); MONO % 6.5 % (2.0-8.0); NEUTROPHILS % 83.4 % (36.0-66.0); PLATELET COUNT, AUTOMATED 204 10^3/uL (150-450); RED BLOOD COUNT 3.17 10^6/uL (4.00-5.40)
[2021-12-27 06:40] LABS: HEMOGLOBIN 9.2 g/dl (12.0-15.5)
[2021-12-27 06:47] VITALS: BP 129/70
[2021-12-27 07:22] LABS: ALBUMIN 3.2 GM/DL (3.2-5.2); ALT/SGPT 60 U/L (12-78); BILIRUBIN,TOTAL 0.2 MG/DL (0.2-1.0); BLOOD UREA NITROGEN 12 MG/DL (7-18); CALCIUM LEVEL 8.7 MG/DL (8.8-10.2); CARBON DIOXIDE LEVEL 27 MEQ/L (21-32); CHLORIDE LEVEL 105 MEQ/L (98-107); CREATININE FOR GFR 0.86 MG/DL (0.55-1.30); GLOMERULAR FILTRATION RATE > 60.0 (>45); GLUCOSE, FASTING 201 MG/DL (70-100); POTASSIUM SERUM 3.8 MEQ/L (3.5-5.1); SODIUM LEVEL 138 MEQ/L (136-145); TOTAL PROTEIN 6.2 GM/DL (6.4-8.2)
[2021-12-27] MEDS: MULTIVITAMINS/MINERALS THERAP 1 TAB PO SCH (08:54)
[2021-12-27] MEDS: GABAPENTIN 100 MG CAP PO SCH ×3 (08:54→20:38)
[2021-12-27] MEDS: ATORVASTATIN 20 MG TAB PO SCH (08:54)
[2021-12-27] MEDS ORDERED: TICAGRELOR 90 MG TABLET (BRILINTA) PO SCH (09:00)
[2021-12-27 10:00] VITALS: BP 130/96
[2021-12-27 14:00] VITALS: BP 124/70
[2021-12-27] MEDS: HEPARIN SOD (PORCINE) 5000UNITS/ML 1ML VIAL/SYRINGE SQ SCH ×2 (14:04→22:22)
[2021-12-27] MEDS: CHLORTHALIDONE 25 MG TAB PO SCH (14:55)
[2021-12-27] MEDS: LR 1,000 ML IV SCH (17:00)
[2021-12-27 18:00] VITALS: BP 138/81
[2021-12-27] MEDS: TICAGRELOR 60 MG PO SCH (20:41)
[2021-12-27 21:45] VITALS: BP 133/68
[2021-12-28] VITALS (7 sets, daily range): BP systolic 113–131; BP diastolic 63–73
[2021-12-28] MEDS: HEPARIN SOD (PORCINE) 5000UNITS/ML 1ML VIAL/SYRINGE SQ SCH ×2 (06:00→22:06)
[2021-12-28 07:31] LABS: HEMATOCRIT 27.4 % (36.0-47.0); HEMOGLOBIN 8.6 g/dl (12.0-15.5); MEAN CORPUSCULAR HEMOGLOBIN 29.1 pg (27.0-33.0); MEAN CORPUSCULAR HGB CONC 31.4 g/dl (32.0-36.5); MEAN CORPUSCULAR VOLUME 92.6 fl (80.0-96.0); PLATELET COUNT, AUTOMATED 174 10^3/uL (150-450); RED BLOOD COUNT 2.96 10^6/uL (4.00-5.40); WHITE BLOOD COUNT 9.1 10^3/uL (4.0-10.0)
[2021-12-28 08:14] LABS: BLOOD UREA NITROGEN 14 MG/DL (7-18); CALCIUM LEVEL 8.4 MG/DL (8.8-10.2); CARBON DIOXIDE LEVEL 31 MEQ/L (21-32); CHLORIDE LEVEL 107 MEQ/L (98-107); CREATININE FOR GFR 0.67 MG/DL (0.55-1.30); GLOMERULAR FILTRATION RATE > 60.0 (>45); GLUCOSE, FASTING 130 MG/DL (70-100); POTASSIUM SERUM 3.8 MEQ/L (3.5-5.1); SODIUM LEVEL 140 MEQ/L (136-145)
[2021-12-28 08:15] LABS: MAGNESIUM LEVEL 1.8 MG/DL (1.8-2.4); PHOSPHORUS LEVEL 2.4 MG/DL (2.5-4.9)
[2021-12-28] MEDS: ATORVASTATIN 20 MG TAB PO SCH (08:36)
[2021-12-28] MEDS: MULTIVITAMINS/MINERALS THERAP 1 TAB PO SCH (08:36)
[2021-12-28] MEDS: CHLORTHALIDONE 25 MG TAB PO SCH (08:36)
[2021-12-28] MEDS: GABAPENTIN 100 MG CAP PO SCH ×3 (08:36→20:19)
[2021-12-28] MEDS: TICAGRELOR 60 MG PO SCH ×2 (08:36→20:19)
[2021-12-28] MEDS ORDERED: K-PHOS ORIGINAL (POT.ACID PHOSPHATE) 500MG TAB PO ONE (15:50)
[2021-12-29] MEDS: HEPARIN SOD (PORCINE) 5000UNITS/ML 1ML VIAL/SYRINGE SQ SCH (05:37)
[2021-12-29 05:41] VITALS: BP 114/65
[2021-12-29 06:20] LABS: HEMATOCRIT 25.6 % (36.0-47.0); HEMOGLOBIN 8.2 g/dl (12.0-15.5); MEAN CORPUSCULAR HEMOGLOBIN 29.5 pg (27.0-33.0); MEAN CORPUSCULAR VOLUME 92.1 fl (80.0-96.0); PLATELET COUNT, AUTOMATED 165 10^3/uL (150-450); RED BLOOD COUNT 2.78 10^6/uL (4.00-5.40); WHITE BLOOD COUNT 7.2 10^3/uL (4.0-10.0)
[2021-12-29 06:51] LABS: BLOOD UREA NITROGEN 11 MG/DL (7-18); CALCIUM LEVEL 8.4 MG/DL (8.8-10.2); CARBON DIOXIDE LEVEL 32 MEQ/L (21-32); CHLORIDE LEVEL 106 MEQ/L (98-107); CREATININE FOR GFR 0.56 MG/DL (0.55-1.30); GLOMERULAR FILTRATION RATE > 60.0 (>45); GLUCOSE, FASTING 135 MG/DL (70-100); MAGNESIUM LEVEL 1.9 MG/DL (1.8-2.4); PHOSPHORUS LEVEL 3.1 MG/DL (2.5-4.9); POTASSIUM SERUM 3.7 MEQ/L (3.5-5.1); SODIUM LEVEL 142 MEQ/L (136-145)
[2021-12-29] MEDS: GABAPENTIN 100 MG CAP PO SCH (08:38)
[2021-12-29] MEDS: CHLORTHALIDONE 25 MG TAB PO SCH (08:38)
[2021-12-29] MEDS: MULTIVITAMINS/MINERALS THERAP 1 TAB PO SCH (08:38)
[2021-12-29] MEDS: TICAGRELOR 60 MG PO SCH (08:38)
[2021-12-29] MEDS: ATORVASTATIN 20 MG TAB PO SCH (08:38)
== END 2021-12-29 10:16 | disposition home or self-care (01) | DRG 571 ==
LOC: M ED 10:16 → M ED INP 14:01 → M MSPAV 18:04
PROVIDERS: ADMIT Surgery; ATTEND Internal Medicine
PROC: 0HCJXZZ Extirpation of Matter from Left Upper Leg Skin, External Approach (ICD-10-PCS; 2021-12-26)
PROC: 0JBM0ZZ Excision of Left Upper Leg Subcutaneous Tissue and Fascia, Open Approach (ICD-10-PCS; principal; 2021-12-26 13:29)
DX: S70.12XA Contusion of left thigh, initial encounter (principal); D62 Acute posthemorrhagic anemia; I10 Essential (primary) hypertension; K76.0 Fatty (change of) liver, not elsewhere classified; Z88.8 Allergy status to other drugs, medicaments and biological substances; Z79.899 Other long term (current) drug therapy; Z86.73 Personal history of transient ischemic attack (TIA), and cerebral infarction without residual deficits; K21.9 Gastro-esophageal reflux disease without esophagitis; V86.55XA Driver of 3- or 4- wheeled all-terrain vehicle (ATV) injured in nontraffic accident, initial encounter; Y92.009 Unspecified place in unspecified non-institutional (private) residence as the place of occurrence of the external cause

== ENCOUNTER → 2021-12-31 | Outpatient (REF) | payer OTHER ==
[~2021-12-31] MED LIST changes: +B-12100020 PO; +CALCTAB89 PO
[2021-12-31 10:56] LABS: HEMATOCRIT 27.9 % (36.0-47.0); HEMOGLOBIN 9.1 g/dl (12.0-15.5); MEAN CORPUSCULAR HEMOGLOBIN 29.6 pg (27.0-33.0); MEAN CORPUSCULAR HGB CONC 32.6 g/dl (32.0-36.5); MEAN CORPUSCULAR VOLUME 90.9 fl (80.0-96.0); PLATELET COUNT, AUTOMATED 215 10^3/uL (150-450); RED BLOOD COUNT 3.07 10^6/uL (4.00-5.40); WHITE BLOOD COUNT 6.9 10^3/uL (4.0-10.0)
[2021-12-31 12:09] LABS: BLOOD UREA NITROGEN 16 MG/DL (7-18); CALCIUM LEVEL 9.2 MG/DL (8.8-10.2); CARBON DIOXIDE LEVEL 26 MEQ/L (21-32); CHLORIDE LEVEL 105 MEQ/L (98-107); GLOMERULAR FILTRATION RATE > 60.0 (>45); GLUCOSE, FASTING 130 MG/DL (70-100); MAGNESIUM LEVEL 1.8 MG/DL (1.8-2.4); PHOSPHORUS LEVEL 3.7 MG/DL (2.5-4.9); POTASSIUM SERUM 3.8 MEQ/L (3.5-5.1); SODIUM LEVEL 138 MEQ/L (136-145)
== END ==
LOC: M LABWUC 10:29
DX: E11.9 Type 2 diabetes mellitus without complications (principal); R10.11 Right upper quadrant pain; E78.5 Hyperlipidemia, unspecified

== ENCOUNTER → 2022-07-27 | Outpatient (REF) | payer OTHER ==
[~2022-07-27] MED LIST changes: +CLOP75TA99 PO; -PLAV1TAB2 PO
== END ==
LOC: M SFHCCLAY 11:42
PROVIDERS: ATTEND Nurse Practitioner Family
DX: N89.8 Other specified noninflammatory disorders of vagina (principal)
CPT/HCPCS: 87070; G0463

== ENCOUNTER → 2022-09-27 | Outpatient (CLI) | payer OTHER | LOC: M CLY 14:31 | PROVIDERS: ATTEND Nurse Practitioner Family | DX: M25.512 Pain in left shoulder (principal) ==

== ENCOUNTER → 2022-09-27 | Outpatient (REF) | payer OTHER ==
[2022-09-27 17:31] LABS: HEMATOCRIT 39.3 % (36.0-47.0); HEMOGLOBIN 12.7 g/dl (12.0-15.5); MEAN CORPUSCULAR HEMOGLOBIN 28.3 pg (27.0-33.0); MEAN CORPUSCULAR HGB CONC 32.3 g/dl (32.0-36.5); MEAN CORPUSCULAR VOLUME 87.7 fl (80.0-96.0); PLATELET COUNT, AUTOMATED 206 10^3/uL (150-450); RED BLOOD COUNT 4.48 10^6/uL (4.00-5.40); WHITE BLOOD COUNT 7.5 10^3/uL (4.0-10.0)
[2022-09-27 18:02] LABS: TOTAL 25(OH) VITAMIN D 46.2 NG/ML (20.0-100.0)
[2022-09-27 18:04] LABS: ALBUMIN 3.8 G/DL (3.2-5.2); ALKALINE PHOSPHATASE 99 U/L (46-116); ALT/SGPT 52 U/L (7.0-40); AST/SGOT 28 U/L (<34); BILIRUBIN,TOTAL 0.2 MG/DL (0.3-1.2); BLOOD UREA NITROGEN 12 MG/DL (9-23); CALCIUM LEVEL 9.5 MG/DL (8.3-10.6); CARBON DIOXIDE LEVEL 32 MMOL/L (20-31); CHLORIDE LEVEL 103 MMOL/L (98-107); CHOLESTEROL LEVEL 117 MG/DL (<200); CHOLESTEROL RISK RATIO 2.79 (<5); CREATININE FOR GFR 0.65 MG/DL (0.55-1.30); GLOMERULAR FILTRATION RATE > 60.0 (>45); GLUCOSE, FASTING 154 MG/DL (74-106); HDL CHOLESTEROL 41.8 MG/DL (>40); LDL CHOLESTEROL 35.2 MG/DL (<100); NON-HDL-C 75.2 MG/DL; POTASSIUM SERUM 3.3 MMOL/L (3.5-5.1); SODIUM LEVEL 141 MMOL/L (136-145); TOTAL PROTEIN 7.1 G/DL (5.7-8.2); TRIGLYCERIDES LEVEL 200 MG/DL (<150)
[2022-09-27 18:38] LABS: HEMOGLOBIN A1c 8.5 % (4.0-6.0)
== END ==
LOC: M SFHCCLAY 14:21
PROVIDERS: ATTEND Nurse Practitioner Family
DX: E78.5 Hyperlipidemia, unspecified (principal); E55.9 Vitamin D deficiency, unspecified; I11.9 Hypertensive heart disease without heart failure; R74.8 Abnormal levels of other serum enzymes; E11.9 Type 2 diabetes mellitus without complications; M25.512 Pain in left shoulder; U09.9 Post COVID-19 condition, unspecified
CPT/HCPCS: 73030; 80053; 80061; 82306; 83036; 85027; G0463

== ENCOUNTER → 2023-03-29 | Outpatient (REF) | payer OTHER ==
[2023-03-29 18:57] LABS: HEMOGLOBIN A1c 7.5 % (4.0-6.0)
== END ==
LOC: M SFHCCLAY 09:46
PROVIDERS: ATTEND Nurse Practitioner Family
DX: E11.9 Type 2 diabetes mellitus without complications (principal)

== ENCOUNTER → 2023-04-14 | Outpatient (REF) | payer OTHER | LOC: M SFHCCLAY 15:55 | PROVIDERS: ATTEND Nurse Practitioner Family | DX: Z53.9 Procedure and treatment not carried out, unspecified reason (principal); R35.0 Frequency of micturition ==

== ENCOUNTER 2023-07-18 10:58 | Emergency (ER) | payer OTHER ==
[~2023-07-18] VITALS: Ht 157.5 cm; Wt 93.9 kg
[2023-07-18 12:31] LABS: BASO % 0.4 % (0.0-1.0); EOS # 0.4 10^3/uL (0.0-0.5); EOS % 4.7 % (0.0-3.0); HEMATOCRIT 41.8 % (36.0-47.0); HEMOGLOBIN 13.5 g/dl (12.0-15.5); LYMPH # 2.2 10^3/uL (1.5-5.0); LYMPH % 28.3 % (24.0-44.0); MEAN CORPUSCULAR HEMOGLOBIN 28.4 pg (27.0-33.0); MEAN CORPUSCULAR HGB CONC 32.3 g/dl (32.0-36.5); MEAN CORPUSCULAR VOLUME 87.8 fl (80.0-96.0); MONO # 0.6 10^3/uL (0.0-0.8); MONO % 7.4 % (2.0-8.0); NEUTROPHILS # 4.6 10^3/uL (1.5-8.5); NEUTROPHILS % 58.7 % (36.0-66.0); PLATELET COUNT, AUTOMATED 212 10^3/uL (150-450); RED BLOOD COUNT 4.76 10^6/uL (4.00-5.40); WHITE BLOOD COUNT 7.8 10^3/uL (4.0-10.0)
[2023-07-18 12:55] LABS: BLOOD UREA NITROGEN 12 MG/DL (9-23); CALCIUM LEVEL 9.2 MG/DL (8.3-10.6); CARBON DIOXIDE LEVEL 32 MMOL/L (20-31); CHLORIDE LEVEL 102 MMOL/L (98-107); CK-MB VALUE MASS < 1.0 NG/ML (<3.6); CREATININE FOR GFR 0.56 MG/DL (0.55-1.30); GLOMERULAR FILTRATION RATE > 60.0 (>45); GLUCOSE, FASTING 127 MG/DL (74-106); POTASSIUM SERUM 3.7 MMOL/L (3.5-5.1); SODIUM LEVEL 138 MMOL/L (136-145)
[2023-07-18 12:59] LABS: CPK CREATINE PHOSPHOKINASE 70 U/L (34-145); MB/CK RELATIVE INDEX 1.42 (< OR =4)
[2023-07-18] MEDS: ONDANSETRON 4MG 2ML VIAL IV ONE (13:11)
[2023-07-18 13:45] LABS: CK-MB VALUE MASS < 1.0 NG/ML (<3.6)
[2023-07-18 13:46] LABS: CPK CREATINE PHOSPHOKINASE 48 U/L (34-145); MB/CK RELATIVE INDEX 2.08 (< OR =4)
[2023-07-18] MEDS ORDERED: ISOVUE-370 76% 100ML VIAL As Ordered ONE (13:58)
[2023-07-18 15:20] VITALS: BP 121/62; TEMP 97.1; O2SAT 97
== END 2023-07-18 15:18 | disposition home or self-care (01) ==
LOC: M ED 10:58
DX: R07.9 Chest pain, unspecified (principal); M79.662 Pain in left lower leg; E78.5 Hyperlipidemia, unspecified; Z88.8 Allergy status to other drugs, medicaments and biological substances; Z86.79 Personal history of other diseases of the circulatory system; Z86.73 Personal history of transient ischemic attack (TIA), and cerebral infarction without residual deficits; Z79.02 Long term (current) use of antithrombotics/antiplatelets; Z79.811 Long term (current) use of aromatase inhibitors; Z79.891 Long term (current) use of opiate analgesic; Z79.899 Other long term (current) drug therapy
CPT/HCPCS: 71046; 71275; 80047; 80048; 82550; 82553; 84484; 85025; 85379; 93005; 93971; 96374; 99284; G0463; J2405; Q9967

== ENCOUNTER → 2024-02-29 | Outpatient (REF) | payer OTHER ==
[2024-02-29 17:20] LABS: C REACTIVE PROTEIN QUANTITATIV 1.5 MG/DL (<1.0)
[2024-02-29 17:21] LABS: ALBUMIN 4.1 G/DL (3.2-5.2); ALKALINE PHOSPHATASE 105 U/L (46-116); ALT/SGPT 108 U/L (7.0-40); APPEARANCE, URINE HAZY (CLEAR); AST/SGOT 64 U/L (<34); BACTERIA, URINE AUTO NEGATIVE (NEGATIVE); BILIRUBIN, URINE AUTO NEGATIVE (NEGATIVE); BILIRUBIN,TOTAL 0.4 MG/DL (0.3-1.2); BLOOD UREA NITROGEN 16 MG/DL (9-23); BLOOD, URINE BLOOD NEGATIVE (NEGATIVE); CALCIUM LEVEL 10.6 MG/DL (8.3-10.6); CARBON DIOXIDE LEVEL 32 MMOL/L (20-31); CHLORIDE LEVEL 103 MMOL/L (98-107); CHOLESTEROL LEVEL 122 MG/DL (<200); CHOLESTEROL RISK RATIO 3.19 (<5); COLOR, URINE YELLOW (YELLOW); CREATININE FOR GFR 0.58 MG/DL (0.55-1.30); GLOMERULAR FILTRATION RATE > 60.0 (>45); GLUCOSE, FASTING 218 MG/DL (74-106); GLUCOSE, URINE (UA) AUTO 1+ mg/dL (NEGATIVE); HDL CHOLESTEROL 38.2 MG/DL (>40); KETONE, URINE AUTO 1+ mg/dL (NEGATIVE); LDL CHOLESTEROL 42.2 MG/DL (<100); LEUKOCYTE ESTERASE, URINE AUTO NEGATIVE (NEGATIVE); MUCUS, URINE SMALL (NEGATIVE); NITRITE, URINE AUTO NEGATIVE (NEGATIVE); NON-HDL-C 83.8 MG/DL; POTASSIUM SERUM 3.7 MMOL/L (3.5-5.1); PROTEIN, URINE AUTO NEGATIVE (NEGATIVE); RBC, URINE AUTO 1 /HPF (0-3); SODIUM LEVEL 141 MMOL/L (136-145); SPECIFIC GRAVITY URINE AUTO 1.027 (1.002-1.035); SQUAMOUS EPITHELIAL CELL UR AU 5 /HPF (0-6); TOTAL PROTEIN 7.8 G/DL (5.7-8.2); TRIGLYCERIDES LEVEL 208 MG/DL (<150); UROBILINOGEN, URINE AUTO 0.2 mg/dL (0.0-2.0); WBC, URINE AUTO 0 /HPF (0-3)
[2024-02-29 17:24] LABS: FREE T4 1.36 NG/DL (0.89-1.76); THYROID STIMULATING HORMONE 1.543 uIU/ML (0.55-4.78)
[2024-03-02 11:30] LABS: RHEUMATOID FACTOR QUANT 6.1 IU/ML (<14)
== END ==
LOC: M SFHCCLAY 14:25
PROVIDERS: ATTEND Nurse Practitioner Family
DX: R35.0 Frequency of micturition (principal); E78.5 Hyperlipidemia, unspecified; E55.9 Vitamin D deficiency, unspecified; I11.9 Hypertensive heart disease without heart failure; E11.9 Type 2 diabetes mellitus without complications

== ENCOUNTER → 2024-06-07 | Outpatient (REF) | payer OTHER ==
[2024-06-07 18:33] LABS: BASO # 0.1 10^3/uL (0.0-0.2); BASO % 0.7 % (0.0-1.0); EOS # 0.4 10^3/uL (0.0-0.5); EOS % 5.1 % (0.0-3.0); HEMATOCRIT 40.9 % (36.0-47.0); HEMOGLOBIN 13.3 g/dl (12.0-15.5); LYMPH # 1.9 10^3/uL (1.5-5.0); LYMPH % 25.8 % (24.0-44.0); MEAN CORPUSCULAR HEMOGLOBIN 28.5 pg (27.0-33.0); MEAN CORPUSCULAR HGB CONC 32.5 g/dl (32.0-36.5); MEAN CORPUSCULAR VOLUME 87.8 fl (80.0-96.0); MONO # 0.5 10^3/uL (0.0-0.8); MONO % 7.3 % (2.0-8.0); NEUTROPHILS # 4.4 10^3/uL (1.5-8.5); NEUTROPHILS % 60.7 % (36.0-66.0); PLATELET COUNT, AUTOMATED 217 10^3/uL (150-450); RED BLOOD COUNT 4.66 10^6/uL (4.00-5.40); WHITE BLOOD COUNT 7.3 10^3/uL (4.0-10.0)
[2024-06-07 18:44] LABS: HEMOGLOBIN A1c 7.4 % (4.0-6.0)
[2024-06-07 19:02] LABS: ALKALINE PHOSPHATASE 72 U/L (35-104); ALT/SGPT 65 U/L (7.0-40); AST/SGOT 35 U/L (<34); BILIRUBIN,TOTAL 0.4 MG/DL (0.3-1.2); BLOOD UREA NITROGEN 14 MG/DL (9-23); CALCIUM LEVEL 9.7 MG/DL (8.3-10.6); CARBON DIOXIDE LEVEL 31 MMOL/L (20-31); CHLORIDE LEVEL 100 MMOL/L (98-107); GLOMERULAR FILTRATION RATE > 60.0 (>45); GLUCOSE, FASTING 103 MG/DL (74-106); POTASSIUM SERUM 4.2 MMOL/L (3.5-5.1); SODIUM LEVEL 144 MMOL/L (136-145); TOTAL PROTEIN 7.6 G/DL (5.7-8.2)
[2024-06-07 19:04] LABS: THYROID STIMULATING HORMONE 2.477 uIU/ML (0.55-4.78)
== END ==
LOC: M SFHCCLAY 10:54
PROVIDERS: ATTEND Physician Assistant
DX: I95.9 Hypotension, unspecified (principal)

== ENCOUNTER 2024-09-03 13:03 | Emergency (ER) | payer OTHER ==
[~2024-09-03] VITALS: Ht 157.5 cm; Wt 89.1 kg
[2024-09-03] MEDS ORDERED: MUPI2OI (14:39)
[2024-09-03] MEDS ORDERED: DOXY100T (14:39)
[2024-09-03 18:15] LABS: HEMATOCRIT 42.6 % (36.0-47.0); HEMOGLOBIN 13.8 g/dl (12.0-15.5); MEAN CORPUSCULAR HEMOGLOBIN 29.1 pg (27.0-33.0); MEAN CORPUSCULAR HGB CONC 32.4 g/dl (32.0-36.5); MEAN CORPUSCULAR VOLUME 89.7 fl (80.0-96.0); PLATELET COUNT, AUTOMATED 243 10^3/uL (150-450); RED BLOOD COUNT 4.75 10^6/uL (4.00-5.40); WHITE BLOOD COUNT 9.8 10^3/uL (4.0-10.0)
[2024-09-03 18:24] LABS: ERYTHROCYTE SEDIMENTATION RATE 24 mm/hr (0-30)
[2024-09-03 18:42] LABS: BLOOD UREA NITROGEN 15 MG/DL (9-23); CALCIUM LEVEL 10.1 MG/DL (8.3-10.6); CARBON DIOXIDE LEVEL 33 MMOL/L (20-31); CHLORIDE LEVEL 102 MMOL/L (98-107); CREATININE FOR GFR 0.63 MG/DL (0.55-1.30); GLOMERULAR FILTRATION RATE > 90.0 (>45); GLUCOSE, FASTING 89 MG/DL (74-106); SODIUM LEVEL 146 MMOL/L (136-145)
[2024-09-03 19:30] VITALS: BP 115/66; O2SAT 98
[2024-09-03] MEDS: DALBAVANCIN 1,500 MG in D5W 250 ML IV ONE (20:12)
[2024-09-03 20:43] VITALS: TEMP 97
== END 2024-09-03 20:57 | disposition home or self-care (01) ==
LOC: M ED 13:03
DX: L03.313 Cellulitis of chest wall (principal); I10 Essential (primary) hypertension; K21.00 Gastro-esophageal reflux disease with esophagitis, without bleeding; Z86.73 Personal history of transient ischemic attack (TIA), and cerebral infarction without residual deficits; Z88.8 Allergy status to other drugs, medicaments and biological substances; Z79.899 Other long term (current) drug therapy; Z79.83 Long term (current) use of bisphosphonates; Z79.2 Long term (current) use of antibiotics; Z79.02 Long term (current) use of antithrombotics/antiplatelets
CPT/HCPCS: 76642; 80048; 85027; 85652; 86140; 96374; 99284; J0875

== ENCOUNTER → 2024-09-30 | Outpatient (REF) | payer OTHER ==
[~2024-09-30] MED LIST changes: +DOXY100T; +MUPI2OI
[2024-09-30 17:45] LABS: ALKALINE PHOSPHATASE 70 U/L (35-104); ALT/SGPT 56 U/L (7.0-40); AST/SGOT 27 U/L (<34); BILIRUBIN,TOTAL 0.3 MG/DL (0.3-1.2); BLOOD UREA NITROGEN 14 MG/DL (9-23); CALCIUM LEVEL 9.3 MG/DL (8.3-10.6); CARBON DIOXIDE LEVEL 32 MMOL/L (20-31); CHLORIDE LEVEL 103 MMOL/L (98-107); CHOLESTEROL LEVEL 158 MG/DL (<200); CHOLESTEROL RISK RATIO 3.46 (<5); FREE T4 1.08 NG/DL (0.89-1.76); GLOMERULAR FILTRATION RATE > 90.0 (>45); GLUCOSE, FASTING 102 MG/DL (74-106); HDL CHOLESTEROL 45.6 MG/DL (>40); LDL CHOLESTEROL 78.4 MG/DL (<100); NON-HDL-C 112.4 MG/DL; POTASSIUM SERUM 4.2 MMOL/L (3.5-5.1); SODIUM LEVEL 142 MMOL/L (136-145); THYROID STIMULATING HORMONE 1.864 uIU/ML (0.55-4.78); TOTAL PROTEIN 7.2 G/DL (5.7-8.2); TRIGLYCERIDES LEVEL 170 MG/DL (<150)
[2024-09-30 17:58] LABS: HEMOGLOBIN A1c 6.4 % (4.0-6.0)
== END ==
LOC: M SFHCCLAY 09:24
PROVIDERS: ATTEND Nurse Practitioner Family
DX: R06.02 Shortness of breath (principal); G45.9 Transient cerebral ischemic attack, unspecified; I95.9 Hypotension, unspecified; E11.9 Type 2 diabetes mellitus without complications; R74.8 Abnormal levels of other serum enzymes; R30.0 Dysuria

== ENCOUNTER → 2024-11-26 | Outpatient (REF) | payer OTHER ==
[~2024-11-26] MED LIST changes: +LISI40TA10 PO; -LISI40TA4 PO
[2024-11-26 13:33] LABS: C REACTIVE PROTEIN QUANTITATIV 0.89 MG/DL (<1.0); RHEUMATOID FACTOR QUANT < 3.5 IU/ML (<14)
[2024-11-29 09:13] LABS: BORRELIA SPECIES DNA NOT DETECTED (NOT DETECT)
[2024-11-29 19:08] LABS: LYME TOTAL ANTIBODY CIA <= 0.90 Index (<=0.90)
== END ==
LOC: M SFHCCLAY 07:15
PROVIDERS: ATTEND Physician Assistant
DX: R30.0 Dysuria (principal); M25.50 Pain in unspecified joint